=== PATIENT | male | born 1965 | race Caucasian/White ===

== ENCOUNTER → 2018-05-13 07:06 | Day surgery (SDC) | payer BC ==
--- NOTE | 2018-05-13 09:24 | BRIEFOPN ---
Brief Operative Note - Surgery Procedures: Pre-OP Diagnoses: ascities Post-op Diagnosis: same Procedure: paracentesis Surgeon: Shakira Asst: none Anethesia: local EBL: none IVF: none Specimen: none Drains: 1400cc peritoneal fluid removed
--- NOTE | 2018-05-14 02:05 | OP ---
CC: [facility]; Dr. Micah Andrew * DATE OF OPERATION: 05/13/18 - [facility] DATE OF : 67 SURGEON: Miguel Ángel Rosenberg MD DAIRY FARM MANAGER: None. ANESTHESIA: Local anesthesia. PRE-OP DIAGNOSIS: Ascites. POST-OP DIAGNOSIS: Ascites. OPERATIVE PROCEDURE: Paracentesis. FLUIDS REMOVED: 1400 cc of straw-colored fluid removed only. DISPOSITION: The patient tolerated the procedure well, was discharged home. INDICATIONS: Mr. Oakes is a 53-year-old gentleman who was described to me yesterday by [facility] as suffering with new diagnosis of liver disease with ascites, who underwent admission at [facility] where he underwent paracentesis. There was concern for infection and bacterial peritonitis. The patient has had worsening ascites and these have been managed both by his primary care doctor and seen by Gastro[facility], who placed him on diuretics. I was requested to do a paracentesis for symptom control. The patient's symptoms are difficult time sleeping and shortness of breath at times. He is concerned about eating too much food as he feels it may make him more bloated. He is passing flatus and having bowel movements. He denies any abdominal pain. On focused examination, his abdomen is distended, atympanic, nontender. He is jaundiced. Impression was ascites. Plan was paracentesis. I outlined the details of the procedure going over the risks, benefits, and alternatives. The patient agreed to proceed after understanding the complications of bleeding, infection, bacterial peritonitis, need for additional procedures. The patient signed consent. DESCRIPTION OF PROCEDURE: Ultrasound was used to locate pocket of fluid in the right lower quadrant. This was then marked. The area was then cleaned and prepped and draped in a standard surgical fashion. A time-out was performed. Injection of lidocaine along the proposed incision site was carried out. This incision was made and peritoneal cavity was entered with the 8 Malian tubing catheter. It was advanced appropriately and connected to the suction devices. Only just a liter and a half was removed. This was straw-colored, non-cloudy, non- bloody. We manipulated the tube gently and sterilely as we could to try to get more fluid out additionally moving, having the patient move, but this is the only volume we can obtain. The catheter was removed and dressing applied. The patient tolerated the procedure well. Postoperative exam showed softer, less distended, remained nontender. My concern is that may be septations preventing drainage of what appears to be more fluid. There was no imaging available through our institution. For this reason, I did not want to do any additional workup. The patient could be seen by GI where he can undergo additional imaging as need be and the patient is discharged. [id number] #: [id number] MTDD
== END | disposition home or self-care (01) ==
LOC: OR 07:06
PROVIDERS: ATTEND Surgery
DX: K76.9 Liver disease, unspecified (principal); R06.02 Shortness of breath; R18.8 Other ascites
CPT/HCPCS: 49082

== ENCOUNTER 2018-05-19 09:20 | Inpatient (IN) | payer BC ==
--- OUTSIDE RECORDS SUMMARY | 2018-05-19 09:28 | XMS REPORT | Continuity of Care Document ---
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 Micah Andrew MD Primary Care Physician Unavailable Payers Type Date Identification Numbers Payment Provider Subscriber Policy Number: [id number] [facility] KARLA Micah Oakes PayID: [id number] [address] [address] [place] [address] Advance Directives Description No Information Available Problems Description No Information Family History Description No Information Available Social History Type Date Description Comments Sex Unknown ETOH Use Consumes 1 beer per day states one per day now-was 12-14 per day and he smelled like alcohol at his visit Tobacco Use Start: Unknown Patient is a current smoker, smokes every day Smoking Status Reviewed: 05/05/18 Patient is a current smoker, smokes every day Allergies, Adverse Reactions, Alerts Description No Known Drug Allergies Medications Medication Date Status Form Strength Qnty SIG Indications Ordering Provider Spironolactone 05/13/ Active Tablets 100mg 30tabs Take 1 Anabelle 2017 tablet Foor-Pessi daily. MD billy Furosemide 05/13/ Active Tablets 40mg 30tabs Take 1 Anabelle 2018 tablet Foor-Pessi daily. MD billy Ciprofloxacin / Active Tablets 500mg Unknown HCL 0000 Lactulose / Active Solution 10GM/15ML Unknown 0000 Pantoprazole / Active Tablets DR 40mg Unknown Sodium 0000 Trazodone HCL / Hx Tablets 50mg Niziol,Wilfrid Linda rodriguez MD 2015 Sulfamethoxazole / Hx Tablets 800-160mg Niziol,Wilfrid /Trimethoprim DS Linda rodriguez MD 2017 Omeprazole / Hx Capsules 40mg Niziol,Wilfrid 0000 - DR michael MD 2017 Furosemide / Hx Tablets 20mg Unknown 0000 - 2017 Spironolactone / Hx Tablets 25mg Unknown - 2017 Immunizations Description No Information Available Vital Signs Date Vital Result Comment 05/05/2018 2:20pm Height 71 inches 5'11" Weight 195.00 lb BP Systolic 126 mmHg BP Diastolic 84 mmHg Heart Rate 104 /min BMI (Body Mass Index) 27.2 kg/m2 02/01/2016 12:53pm Height 71 inches 5'11" Weight 171.00 lb BP Systolic 132 mmHg BP Diastolic 88 mmHg Heart Rate 88 /min BMI (Body Mass Index) 23.8 kg/m2 Results Description No Information Available Procedures Description No Information Available Encounters Type Date Location Provider Dx Diagnosis Office Visit 02/01/2016 [facility] [place], R63.4 Abnormal weight 1:45p [facility] INTERPERSONAL COMMUNICATIONS PROFESSOR-C loss R19.5 Other fecal abnormalities R14.0 Abdominal distension (gaseous) Plan of Treatment Future Appointment(s):05/19/2018 8:30 am - Laboratory at [facility]05/05/2018 - Anabelle Urban MDK70.31 Alcoholic cirrhosis of liver with ozynimlM08.9 Anemia, otobfrhongoB57.2 Gastrointestinal hemorrhage, unspecified
--- NOTE | 2018-05-19 09:48 | ED ---
Abdominal Pain/Male - HPI Summary HPI Summary: Pt is a 53 y/o male who presents to the ED c/o abdominal pressure. He has a hx of liver cirrhosis and began to have abdominal distention 3-4 weeks ago after being admitted at [facility] 1 month ago. Pt was here 2 days ago with the same symptoms, was diagnosed with dehydration, and had 6.5 L of ascites fluid taken off by Dr. Rosenberg in the ED. This morning the pt went to his GI physician's office, Dr. Urban, to get blood work done, and was advised to go to the ED for further evaluation due to ascites re-accumulation. As per , her has been fatigued, weak, and unable to eat, and has been having episodes of hiccups. Pt has been on diuretics as per Dr. Urban for the past 2 weeks. Pt states he has diffuse abdominal pressure, but denies any sharp pain or radiating pain. No N,V, hemetemesis or melena. The discomfort is alleviated by lying flat, and is rated a 3/10 in severity. He also c/o SOB, but denies any fever, cough, chills, sweats, or CP. Pt is a former smoker and alcoholic. Pts weight was 190 lbs 2 days ago, and was 179 lbs yesterday. Culture from the paracentesis was neg after two days growth. Vitals while in room: HR 86 bpm, BP 119/66. - History of Current Complaint Chief Complaint: EDAbdPain Stated Complaint: ABD SWELLING/WEAKNESS/PAIN Time Seen by Provider: 05/19/18 09:28 Hx Obtained From: Patient, Family/Immunochemist - , Medical Records - ED visit 05/17/18 Onset/Duration: Gradual Onset, Lasting Weeks - 3-4, Worse Since Timing: Constant Severity Initially: Moderate Severity Currently: Moderate Pain Intensity: 3 Pain Scale Used: 0-10 Numeric Location: Diffuse Radiates: No Character: Other: - Pressure Aggravating Factor(s): Other: - Lying flat Alleviating Factor(s): Nothing Associated Signs And Symptoms: Positive: Decreased Appetite. Negative: Fever, Chest Pain, Nausea, Vomiting, Diarrhea Similar Episode/Dx As:: 2 days ago - Allergies/Home Medications Allergies/Adverse Reactions: Allergies Allergy/AdvReac Type Severity Reaction Status Date / Time No Known Allergies Allergy Verified 05/19/18 09:24 Home Medications: Home Medications Furosemide TAB* [Lasix TAB*] 40 mg PO DAILY 05/19/18 [History Confirmed 05/19/18 ] Pantoprazole Sodium 40 mg PO DAILY 05/19/18 [History Confirmed 05/19/18] Spironolactone 100 mg PO DAILY 05/19/18 [History Confirmed 05/19/18] PMH/Surg Hx/FS Hx/Imm Hx Previously Healthy: No Endocrine/Hematology History: Denies: Hx Diabetes GI History: Reports: Other GI Disorders - Liver cirrhosis, s/p paracentesis with 6.5 L removed History: Reports: Other Problems/Disorders - Born with one kidney - Cancer History Cancer Type, Location and Year: None reported - Surgical History Surgery Procedure, Year, and Place: Exicison of foreign body from R hand -2005 Infectious Disease History: No Infectious Disease History: Denies: Traveled Outside the [place] in Last 30 Days - Family History Known Family History: Negative: Cardiac Disease, Hypertension, Diabetes - Social History Occupation: Disabled Lives: With Family Alcohol Use: None Alcohol Amount: former alcoholic Hx Substance Use: No Substance Use Type: Reports: None Hx Tobacco Use: Yes Smoking Status (MU): Former Smoker Review of Systems Positive: Fatigue, Other - Generalized weakness. Negative: Fever, Chills, Skin Diaphoresis Negative: Chest Pain Positive: Shortness Of Breath. Negative: Cough Positive: Other - abdominal pressure, hiccups, decreased appetite. Negative: Abdominal Pain, Vomiting, Nausea Positive: no symptoms reported Skin: Negative Neurological: Negative Psychological: Normal All Other Systems Reviewed And Are Negative: Yes Physical Exam - Summary Physical Exam Summary: Appearance: Ill-appearing, moderate pain distress, well-nourished Skin: Warm, dry, jaundiced Head: Normal Head/Face inspection, atraumatic Eyes: Conjunctiva icteric ENT: Normal inspection Neck: Supple, no nodes, no JVD Respiratory: scattered expiratory wheezes, normal breath sounds, no respiratory distress Cardio: RRR, No murmur, pulses normal, brisk capillary refill Abdomen: Distended, soft, not tympanitic, nontender, liver non-palpable Bowel sounds: Present Musculoskeletal: ROM intact, no calf tenderness, no edema, generalized weakness Psychological: Normal Neuro: Alert, muscle tone normal, no focal deficit Triage Information Reviewed: Yes Vital Signs On Initial Exam: Initial Vitals Temp Pulse Resp BP Pulse Ox 98.1 F 90 16 106/68 99 05/19/18 09:21 05/19/18 09:21 05/19/18 09:21 05/19/18 09:21 05/19/18 09:21 Vital Signs Reviewed: Yes Diagnostics - Vital Signs Vital Signs Temp Pulse Resp BP Pulse Ox 05/19/18 09:21 98.1 F 90 16 106/68 99 - Laboratory Result Diagrams: 05/19/18 10:35 05/19/18 10:35 Lab Statement: Any lab studies that have been ordered have been reviewed, and results considered in the medical decision making process. - Radiology CXR Radiology Interpretation Completed By: Radiologist Summary of Radiographic Findings: Mild mid to lower lung zone atelectasis similar to the prior exam. ED physician reviewed radiology report. - EKG 10:30 Cardiac Rate: NL - 86 bpm EKG Rhythm: Sinus Rhythm ST Segment: Normal Ectopy: None EKG Comparison: Other - No prior to compare. Summary of EKG Findings: An EKG at 10:30 reveals nml AV/IV CT, nml QTc, and nml axis. Re-Evaluation - Re-Evaluation First Eval Re-Evaluation Time: 10:15 Change: Unchanged Comment: Discussed admission with patient, and he agrees. He denies any abdominal pain or N/V. Abdominal Pain Fem Course/Dx - Course Course Of Treatment: Pt is a 53 y/o male who presents to the ED c/o abdominal pressure. He has a hx of liver cirrhosis and began to have abdominal distention 3-4 weeks ago after being admitted at [facility] 1 month ago. Pt was here 2 days ago with the same symptoms, was diagnosed with dehydration, and had 6.5 L of fluid taken off by Dr. Rosenberg. This morning the pt went to his GI physician, Dr. Urban, to get blood work done. As per , her has been fatigued , weak, and unable to eat, and has been having episodes of hiccups. Pt states he has diffuse abdominal pressure, but denies any sharp pain or radiating. The discomfort is alleviated by lying flat, and is rated a 3/10 in severity. He also c/o SOB, but denies any fever, cough, chills, sweats, or CP. A physical exam revealed the pt ill-appearing, jaundiced, icteric conjunctiva, scattered expiratory wheezes, distended abdomen, and liver non-palpable. A CXR revealed mild mid to lower lung zone atelectasis similar to the prior exam. An EKG was normal and revealed a rate of 86 bpm. Pt has multiple lab abnormalities and critical values. Discussed the case with Dr. Mcgee who wants the pt admitted and will consult with the pt. Discussed admission with the pt, who is agreeable with this plan. Dr. Garcia accepts pt for admission. Final dx are cirrhosis, ascites, and end stage liver disease. - Diagnoses Differential Diagnosis/HQI/PQRI: Bowel Obstruction, Hepatitis, Other - cirrhosis Provider Diagnoses: Cirrhosis, Ascites, End stage liver disease, Hyponatremia, Jaundice - Provider Notifications Discussed Care Of Patient With: Yaakov Mcgee Time Discussed With Above Provider: 09:46 Instructed by Provider To: Other - Dr. Mcgee will consult the patient, and would like him to be admitted. At 10:[address] Garcia, who accepts pt for admission. Discharge - Sign-Out/Discharge Documenting (check all that apply): Patient Departure - Admit - Discharge Plan Condition: Stable Disposition: ADMITTED TO [facility] - Billing Disposition and Condition Condition: STABLE Disposition: Admitted to [facility] - Attestation Statements Document Initiated by Phil: Yes Documenting Scribe: Gloria Trinh Provider For Whom Barbieibe is Documenting (Include Credential): Marilee Howard MD Scribe Attestation: Gloria Lane scribed for Marilee Howard MD on 05/19/18 at 1252. Scribe Documentation Reviewed: Yes Provider Attestation: The documentation as recorded by the Gloria monroy accurately reflects the service I personally performed and the decisions made by me, Marilee Howard MD
[2018-05-19 10:51] LABS: Hematocrit 38 % (42-52); Hemoglobin 12.9 g/dl (14.0-18.0); Mean Corpuscular HGB Conc 34 g/dl (31-36); Mean Corpuscular Hemoglobin 35 pg (27-31); Mean Corpuscular Volume 103 fL (80-94); Mean Platelet Volume 9.1 fL (7.4-10.4); Platelet Count 157 10^3/ul (150-450); Red Blood Count 3.73 10^6/ul (4.00-5.40); Red Cell Distribution Width 21 % (10.5-15); White Blood Count 23.1 10^3/ul (3.5-10.8)
[2018-05-19 11:05] LABS: INR 2.22 (0.77-1.02)
[2018-05-19 11:31] LABS: EGFR Non-African American 19.3 (>60)
[2018-05-19 11:49] LABS: ABS Basophils 0.1 10^3/ul (0-0.2); ABS Eosinophils 0.1 10^3/ul (0-0.6); ABS Lymphocytes 1.4 10^3/ul (1.0-4.8); ABS Monocytes 3.4 10^3/ul (0-0.8); ABS Neutrophils 18.1 10^3/ul (1.5-7.7); ABS Nucleated RBC 0 10^3/ul; Eosinophil % 0.4 % (0-6); Lymphocyte % 6.2 % (25-47); Nucleated Red Blood Cells % 0
[2018-05-19] MEDS ORDERED: Ondansetron INJ* 2 MG/ML VIAL IV PRN (11:54)
[2018-05-19] MEDS ORDERED: Phytonadione IV (Adult)* 10 MG/ML 1 ML AMP IV ONE (12:01)
[2018-05-19] MEDS ORDERED: CMC:Midodrine (NF) 5 MG TAB PO SCH (12:04)
[2018-05-19] MEDS ORDERED: cefTRIAXone(*) 2 GM in NS 0.9% 50 ML* 50 ML IVPB SCH (12:30)
[2018-05-19] MEDS ORDERED: cefTRIAXone(*) 1 GM in NS 0.9% 50 ML* 50 ML IVPB SCH (12:30)
[2018-05-19 13:52] LABS: Urine Appearance Cloudy; Urine Blood Negative (Negative); Urine Color Amber; Urine Ketones Negative (Negative); Urine Protein Negative (Negative); Urine Specific Gravity 1.014 (1.010-1.030); Urine Urobilinogen Positive (Negative)
[2018-05-19] MEDS: CMC:Midodrine (NF) 5 MG TAB PO SCH ×3 (14:08→21:13)
[2018-05-19] MEDS ORDERED: NS 0.9% 1000 ML* 1,000 ML IV SCH (14:15)
[2018-05-19] MEDS: Lactulose* 15 ML UDC PO SCH ×2 (14:16→21:13)
[2018-05-19] MEDS ORDERED: Albumin Human 25%* 25 GM/100 ML BTL IV ONE (15:00)
[2018-05-19] MEDS: cefTRIAXone(*) 2 GM in NS 0.9% 100 ML* 100 ML IVPB SCH (15:07)
[2018-05-19] MEDS: NS 0.9% 1000 ML* 1,000 ML IV SCH (15:14)
--- NOTE | 2018-05-19 15:56 | HP ---
CC: Dr. Andrew; Dr. Turner; Dr. Cabrera; Dr. Toney; Dr. Mcgee; Dr. Arminda Kim * HISTORY AND PHYSICAL: DATE OF ADMISSION: 05/19/18 PRIMARY CARE PROVIDER: Dr. Andrew. CONSULTING LOCOMOTIVE PIPE FITTER: Dr. Turner. CONSULTING INFECTIOUS DISEASE SPECIALIST: Dr. Cabrera. CONSULTING SURGEON: Dr. Toney. CONSULTING TOUR SALES REPRESENTATIVE: Dr. Mcgee. MY ATTENDING PHYSICIAN WHILE IN THE HOSPITAL: Dr. Garcia * (report dictated by Alberto Camarillo NP). CHIEF COMPLAINT: Abdominal swelling. HISTORY OF PRESENT ILLNESS: Mr. Oakes is a 53-year-old male patient that he noticed in the beginning of March he was feeling weak, fatigued, tired. He presented to [facility], was found there to have a GI bleed. He was transferred to [facility], where he underwent endoscopies and essentially was discharged. He at that point was diagnosed with he says cirrhosis. He receives most of his care in the [place] area. He sought care with Dr. Arminda Kim on 05/05/18 for follow up for his cirrhosis. The last couple of days though he has been in the ER on 05/17/18 for a large volume paracentesis, he was asked to say, but he left on the 05/17/18, he comes back today on 05/19/18 because he has had progressive worsening swelling of his abdomen. He denies having any chest pain or any shortness of breath. He does admit to feeling congested. He denies having any bleeding. He denies having any abdominal pain. He denied any nausea or vomiting recently. He says that he has been trying to drink, but he just has no appetite. He has been feeling weak. He has been feeling again more tried. He has been just again not feeling well. He denied any chest pain. He said on Saturday, 6.5 liters were taken off. He denied having any fevers or chills. He was concerned though today and his because of swelling in his legs just was not getting any better despite the fact that he has been taking Lasix. He continued taking the Lasix and was paced on a lower dose over the weekend. His dose was recently doubled prior to this. The patient says again he has just been feeling weak and fatigued. He came into the ED today. He was evaluated. It was noted that he had an elevated white count, elevated CRP and his creatinine was much worse, and because of these findings, we were asked to evaluate for admission. PAST MEDICAL HISTORY: Significant for: 1. GI bleed. 2. Cirrhosis. 3. Congenitally, he has 1 kidney. PAST SURGICAL HISTORY: Denied. MEDICATIONS: Home meds include: 1. Aldactone 100 mg daily. 2. Protonix 40 mg daily. 3. Lasix 40 mg daily. ALLERGIES TO MEDICATIONS: Include no known drug allergies. FAMILY HISTORY: Mother had a history of diabetes. Father had a history of kidney cancer. SOCIAL HISTORY: He used to be an alcoholic. He has not had a drink since . He is a former smoker. His surrogate decision maker is his . REVIEW OF SYSTEMS: There is no documented fever. He denies having significant weight change. He denied having any double vision. There was no ear discharge. He denies having any rhinorrhea. There is no sore throat. No thyroid enlargement. He denied having any chest pain. There is no orthopnea. There is no nocturnal dyspnea. He denied having any abdominal pain. He does admit to have abdominal swelling. There was no nausea, vomiting. No dysuria, no frequency. No seizure. No loss of consciousness. No pruritus and no skin ulcerations. Review of 14 systems completed, all others negative. PHYSICAL EXAMINATION GENERAL: At this time, Mr. Oakes is a 53-year-old male patient. He is sitting in the ED stretcher. He is chronically-ill appearing. VITAL SIGNS: Blood pressure 109/64, pulse 87, respirations 18, O2 sat 99%, temperature was 98.1. HEENT: Head: Atraumatic. Eyes again were noted to be icteric. Pupils equal and reactive to light. Throat: Oral mucosa appears to be moist. No oropharyngeal erythema. NECK: Supple. LUNGS: Clear to auscultation bilaterally. There was no wheezes, rales, or rhonchi. HEART: Sounds S1, S2. He had a regular rate and rhythm with no murmurs, rubs, or gallops. ABDOMEN: Soft, but there was ascites. He had abdominal vein distentions on the skin, nontender. Bowel sounds were present. EXTREMITIES: He had 2+ pitting edema bilaterally and 5/5 strength. NEUROLOGICAL: He is awake. He is alert. He is oriented x3. His tongue is midline. His block sealer were equal. He has no gross focal deficits. SKIN: Intact, but he again does appear to be jaundiced. LABORATORY DATA/DIAGNOSTIC STUDIES: His labs today, WBC of 23.1, RBC of 3.73, hemoglobin 12.9, hematocrit 38, platelet count was 157. His INR was 2.22, PTT was 42. His sodium was 125. His potassium was 4.9, chloride of 90, his bicarb was 20, BUN 62, creatinine of 3.37. When he was here 2 days ago, his creatinine was 2.15, his glucose was 111, his lactic acid was 1.7. Calcium 7.5 , magnesium 2.5. Bilirubin 20, AST 90, ALT 20, alk phos 237, and CRP was 119. Troponin 0.01. Albumin was 2.2. Prealbumin is pending. Amylase and lipase were normal. He did have a paracentesis 2 days ago, which showed 26 WBC, 100 total cell count with 25% neutrophils, 1% band. Microbiology on that fluid is negative to date. He had a chest x-ray obtained today as well. Impression: Mild mid to lower lung zone atelectasis similar to the prior exam. EKG, there is no previous for comparison, but the EKG today shows a normal sinus rhythm, normal axis, rate of 86, no ST elevation or T-wave inversions noted. He had a CT of the abdomen and pelvis 2 days ago, which revealed malrotated right kidney, moderate to large amount of ascites is noted, right basilar atelectasis is noted. Old medical records reviewed. ASSESSMENT AND PLAN: Mr. Oakes is a 53-old male patient with a known history of cirrhosis coming into the ED today with complaints of worsening swelling of the abdomen and increasing weakness. Evaluation today, he was noted to be in acute renal failure. In addition, he is having an elevated white count. There was concern for the acute renal failure and possible underlying infection. He will be admitted under inpatient status for: 1. Cirrhosis. Again, at this point, I do have to consult Dr. Mcgee. His MELD score is 39 placing him at a 60% mortality in the next 3 months. I am going to hold his diuretics. I do think he needs a paracentesis today again to evaluate his fluid as there was bands in the fluid 2 days ago. I will put him empirically on Rocephin. He does appear to be decompensated. I will see if I can find any insulting reason for this. I am concerned of infection because of the white count of 23,000. I will panculture him and I also will get Dr. Cabrera involve to help us as well. 2. Acute renal failure. I am concerned for hepatorenal. I do have Dr. Turner evaluating the patient. I am sending off his urine sodium and urine potassium and also urine creatinine. I will bladder scan him as well to make sure he is not retaining. I suspect that he is intravascularly dry and he may need fluids , but I would like to see what his urine sodium is before giving him fluids and albumin. I will start him on midodrine and we will continue to follow this. 3. History of gastrointestinal bleed. I am getting records from [facility] to just see where his labs were a month ago and comparison to today. 4. DVT prophylaxis. I have ordered SCDs. 5. Coagulopathy. This is probably secondary to the cirrhosis. I am going to give him a dose of vitamin K. 6. Code status. He is a full code. 7. Fluids, electrolytes, and nutrition. He is clear liquid diet. TIME SPENT: Time spent on the admission was 70 minutes, greater than half the time spent [id number] with the patient obtaining my history and physical; other half of the time spent going over the plan of care with the patient and implementing plan of care. I did discuss the plan of care with my attending, Dr. Garcia. ALBERTO CAMARILLO, JOHAN [id number]/[facility] #: [id number] MARK
--- NOTE | 2018-05-19 16:24 | CONS ---
CC: Dr. Andrew * CONSULTATION REPORT: DATE OF CONSULT: 05/19/18 REFERRING PHYSICIAN: Dr. Andrew. INDICATION: Cirrhosis, alcohol abuse, recent. NARRATIVE: Mr. Oakes is a 53-year-old alcoholic, who has a diagnosis of alcoholic cirrhosis. He was recently at [facility] where the diagnosis was made. He was seen a couple of years ago and had a liver biopsy for increased liver function test. It did show grade 3, stage 4 liver disease, either DOS SANTOS versus alcoholic cirrhosis. The patient continued to drink alcohol. He states he had been drinking up until 04/22/18. He was admitted to [facility] for anemia and management of his cirrhosis. He has seen Dr. Urban in the office for a continued management. His did call me over this past weekend with increased abdominal girth, I recommended he go to the emergency room where they did remove a 6.5 liters via large volume paracentesis. Acidic analysis did not reveal any spontaneous bacterial peritonitis at that time. The patient then represented to the emergency room today for failure to thrive. He denies any black and tarry stools. Both he and his denied any confusion. He is using lactulose on a daily basis. He states that his abdomen has increased in size back to where it was just a couple of days ago. He feels very short of breath. He is having a difficult time eating because he is so full and distended. He denies any other symptoms at this time. PAST MEDICAL HISTORY: Significant for alcoholism. PAST SURGICAL HISTORY: None. MEDICATIONS: Upon admission include: 1. Cipro. 2. Lasix 40 mg a day. 3. Lactulose. 4. Pantoprazole 40 mg a day. 5. Spironolactone 100 mg a day. FAMILY HISTORY: Mom had diabetes. Father with kidney cancer. No liver disease in the family. No GI malignancies in the family. SOCIAL HISTORY: He does smoke cigars. Alcohol use up until 04/22/18. He lives with his . REVIEW OF SYSTEMS: Please see the HPI, other than that mentioned in the HPI were negative. Other pertinent findings would include fatigue, lethargy, decreased muscle mass. PHYSICAL EXAM: His temperature is 97.7, blood pressure is 108/64, pulse of 76, respiratory rate 16, O2 sat is 99%. General: Chronically ill-appearing male, in no apparent distress. Alert, oriented, pleasant, and fluent. Neuro: No asterixis. HEENT: Sclerae are icteric. Conjunctivae are not pale. Heart: Regular rate and rhythm. Lungs: Clear to auscultation. Abdomen: Distended. Positive bowel sounds. Soft, positive dull flags. Skin: Warm and dry. No rashes. Positive jaundice. DIAGNOSTIC STUDIES/LAB DATA: Of note, white count of 23, hemoglobin of 12.9, platelets of 157. INR is 2.22. Sodium is 123. BUN is 62, creatinine is 3.37, just 2 days ago his creatinine was 2.15. Bilirubin of 20, AST of 90, ALT of 20 , alk phos of 239. CRP is 119. Albumin is 2.2. Unfortunately, he has a MELD score of 39. ASSESSMENT AND PLAN: Mr. Oakes is a 53-year-old alcoholic with alcoholic cirrhosis and complications from it. No encephalopathy at this point. However , I would recommend we continue with his lactulose. 1. Ascites, unfortunately we cannot use diuretics given his renal failure. He did have a 6.5-liter large volume paracentesis just 48 hours ago, there was no evidence of SBP on the tap. He likely will need a repeat paracentesis here in the next few days. 2. Esophageal varices: He did have an upper endoscopy on 04/24/18 at [facility] and no varices were noted. I did see the report, there was positive portal hypertensive gastropathy. 3. Renal failure: The patient had seen Dr. Turner. Unfortunately, he probably does have a component of hepatorenal. Hopefully, there is some prerenal azotemia due to dehydration here and hopefully, his kidney function can improve a little bit. I did have an extremely long and fracisco discussion with the patient and his regarding his current situation with a MELD of 39 , his 3-month mortality is some where between 50% and 70%. Hopefully, with continued abstinence, he can improve. We will continue to follow along very closely. [id number]/[facility] #: [id number] MARK
--- NOTE | 2018-05-19 19:33 | CONS ---
NEPHROLOGY CONSULTATION: ADDENDUM: He was started on lactulose recently. He has been reluctant to take it because of the diarrhea. His thinks he has had some easy bruisability. He denies this, thinks that it is related to a minor trauma and scraping himself. PHYSICAL EXAM: He is a well-developed, well-nourished white gentleman. His blood pressure is 109/64, but he has been hypotensive here in the emergency room , pulse is 89, respiratory rate 16. He has not been able to void here. On HEENT, he is markedly icteric. His extraocular muscles are intact. His mucous membranes are dry. His lips are dry. He has jugular venous distention to about 12 cm, but he is lying flat in bed. His chest is clear. The heart revealed a regular rhythm without murmurs. His abdomen is markedly distended with a positive fluid wave. He has caput medusae that is obvious on the anterior abdominal wall and the lower chest. He has spider angiomata. His liver is ballotable approximately 4 fingerbreadths below the costal margin in the midclavicular line. Bones, Joints, Extremities: Reveal no cyanosis or clubbing, but he does have 2+ bilateral edema approximately one-half way up his lower legs. LABORATORY DATA: Review of his laboratory studies reveals a white count of 23.1 , he was 26.4 on 05/17/18; his hemoglobin is 12.9; hematocrit 38; MCV is 103; platelet count of 157,000. His INR is 2.22. Sodium of 123, potassium 4.9, chloride 90, total CO2 of 20, BUN of 62, creatinine 3.34. His creatinine was 2.15 on 05/17/18. Calcium 7.5. Total bilirubin 20, his AST is 90 with an ALT of 20. His albumin is 2.2. Peritoneal fluid on 05/17/18 revealed 26 wbc's, 68 rbc's, there were 25% neutrophils, 46% lymphocytes, 26% monocytes. IMPRESSION: 1. Acute renal failure. This is highly likely to be secondary to a perceived intravascular volume depletion because of opening up of arteriovenous malformations due to his liver disease. 2. Alcoholic liver disease. I am suspicious that there is an alcoholic hepatitis component to this because of the ratio of his transaminases and the fact that his liver is enlarged and not small on CT scan and the fact that he is able to elevate his BUN. Nevertheless, his MELD score is 39 and he is hyponatremic. These are both significant negative prognostic indicators. PLAN/RECOMMENDATIONS: I would recommend the attempt to close off his arteriovenous malformation channels by the use of midodrine. I would actually start at a higher than usual starting dose, starting at 10 mg 3 times a day. I would withhold octreotide at this time we see an effect of the octreotide. I would start him on an albumin infusion and he should probably be rehydrated cautiously with saline. I would be cautious to obtain his urinary electrolytes before starting the saline so as to not obscure the urinary sodium and potassium. I would avoid the use of loop diuretics, although the Aldactone can probably continue at this point. I have discussed the case at length with Alberto Camarillo NP. [id number]/[facility] #: [id number] MARK
--- NOTE | 2018-05-19 19:51 | CONS ---
ADDENDUM NOW INCLUDED ON THIS REPORT CC: Dr. Andrew * NEPHROLOGY CONSULTATION: DATE OF CONSULT: 05/19/18 HISTORY OF PRESENT ILLNESS: Mr. Oakes is a 53-year-old gentleman with a history of alcoholism. He stopped drinking at [place] of this year. He had been admitted to the hospital at the [facility] approximately a month ago for gastrointestinal bleed. At that time, his bilirubin was 2.1. He had an outpatient consultation with Gastroenterology, who did mention the possibility that he could have had a component of alcoholic hepatitis here. He was in the emergency room on Saturday because of increasing abdominal girth and he had a paracentesis of almost 6.5 L. Since that time, he thinks that half of that fluid has returned. He returned to the emergency room today because of that recurrent ascites. He denies orthopnea and dyspnea on exertion. He does notice nausea and anorexia. His has noted worsening of jaundice over approximately the last 3 weeks. PAST MEDICAL HISTORY: Other than this particular history, he has no significant medical history. PAST SURGICAL HISTORY: Fairly unremarkable except for excision of a foreign body from his right hand. MEDICATIONS: Included: 1. Omeprazole. 2. Bactrim. 3. Trazodone. 4. Now Aldactone 100 mg daily. 5. Furosemide 40 mg daily. SOCIAL HISTORY: He is employed in a local [employer] shop. He is . He has been a smoker in the past, but quit recently as well. REVIEW OF SYSTEMS: He feels markedly dehydrated. No visual disturbances. No hearing problems. He has had some diarrhea. He had been given some Aldactone. NEPHROLOGY CONSULTATION: ADDENDUM: He was started on lactulose recently. He has been reluctant to take it because of the diarrhea. His thinks he has had some easy bruisability. He denies this, thinks that it is related to a minor trauma and scraping himself. PHYSICAL EXAM: He is a well-developed, well-nourished white gentleman. His blood pressure is 109/64, but he has been hypotensive here in the emergency room , pulse is 89, respiratory rate 16. He has not been able to void here. On HEENT, he is markedly icteric. His extraocular muscles are intact. His mucous membranes are dry. His lips are dry. He has jugular venous distention to about 12 cm, but he is lying flat in bed. His chest is clear. The heart revealed a regular rhythm without murmurs. His abdomen is markedly distended with a positive fluid wave. He has caput medusae that is obvious on the anterior abdominal wall and the lower chest. He has spider angiomata. His liver is ballotable approximately 4 fingerbreadths below the costal margin in the midclavicular line. Bones, Joints, Extremities: Reveal no cyanosis or clubbing, but he does have 2+ bilateral edema approximately one-half way up his lower legs. LABORATORY DATA: Review of his laboratory studies reveals a white count of 23.1 , he was 26.4 on 05/17/18; his hemoglobin is 12.9; hematocrit 38; MCV is 103; platelet count of 157,000. His INR is 2.22. Sodium of 123, potassium 4.9, chloride 90, total CO2 of 20, BUN of 62, creatinine 3.34. His creatinine was 2.15 on 05/17/18. Calcium 7.5. Total bilirubin 20, his AST is 90 with an ALT of 20. His albumin is 2.2. Peritoneal fluid on 05/17/18 revealed 26 wbc's, 68 rbc's, there were 25% neutrophils, 46% lymphocytes, 26% monocytes. IMPRESSION: 1. Acute renal failure. This is highly likely to be secondary to a perceived intravascular volume depletion because of opening up of arteriovenous malformations due to his liver disease. 2. Alcoholic liver disease. I am suspicious that there is an alcoholic hepatitis component to this because of the ratio of his transaminases and the fact that his liver is enlarged and not small on CT scan and the fact that he is able to elevate his BUN. Nevertheless, his MELD score is 39 and he is hyponatremic. These are both significant negative prognostic indicators. PLAN/RECOMMENDATIONS: I would recommend the attempt to close off his arteriovenous malformation channels by the use of midodrine. I would actually start at a higher than usual starting dose, starting at 10 mg 3 times a day. I would withhold octreotide at this time we see an effect of the octreotide. I would start him on an albumin infusion and he should probably be rehydrated cautiously with saline. I would be cautious to obtain his urinary electrolytes before starting the saline so as to not obscure the urinary sodium and potassium. I would avoid the use of loop diuretics, although the Aldactone can probably continue at this point. I have discussed the case at length with Alberto Camarillo NP. [id number]/[facility] #: [id number]/[facility] #: [id number] MARK
[2018-05-19 21:36] LABS: INR 2.25 (0.77-1.02)
[2018-05-20] MEDS: NS 0.9% 1000 ML* 1,000 ML IV SCH (03:15)
[2018-05-20 06:04] LABS: ABS Basophils 0.2 10^3/ul (0-0.2); ABS Eosinophils 0.1 10^3/ul (0-0.6); ABS Lymphocytes 1.2 10^3/ul (1.0-4.8); ABS Monocytes 1.3 10^3/ul (0-0.8); ABS Neutrophils 15.4 10^3/ul (1.5-7.7); ABS Nucleated RBC 0 10^3/ul; Eosinophil % 0.8 %; Hematocrit 32 % (42-52); Hemoglobin 10.8 g/dl (14.0-18.0); Lymphocyte % 6.4 %; Mean Corpuscular HGB Conc 34 g/dl (31-36); Mean Corpuscular Hemoglobin 35 pg (27-31); Mean Corpuscular Volume 103 fL (80-94); Nucleated Red Blood Cells % 0; Platelet Count 108 10^3/ul (150-450); Red Blood Count 3.11 10^6/ul (4.00-5.40); Red Cell Distribution Width 20 % (10.5-15); White Blood Count 18.3 10^3/ul (3.5-10.8)
[2018-05-20 06:13] LABS: INR 1.95 (0.77-1.02)
[2018-05-20 06:23] LABS: EGFR Non-African American 19.1 (>60)
[2018-05-20] MEDS: Lactulose* 15 ML UDC PO SCH ×3 (09:02→21:37)
[2018-05-20] MEDS: Omeprazole CAP* 20 MG PO SCH (09:02)
[2018-05-20] MEDS: CMC:Midodrine (NF) 5 MG TAB PO SCH ×3 (09:02→21:37)
[2018-05-20] MEDS ORDERED: NS 0.9% 1000 ML* 1,000 ML IV SCH (10:44)
[2018-05-20] MEDS ORDERED: Phytonadione IV (Adult)* 10 MG/ML 1 ML AMP IV ONE (11:39)
[2018-05-20] MEDS ORDERED: Albumin Human 25%* 50 GM/200 ML BTL IV ONE ×2 (12:00)
[2018-05-20] MEDS ORDERED: ALBUMIN HUMAN 25% IV ONE ×2 (12:00→14:00)
[2018-05-20] MEDS: Spironolactone TAB* 25 MG PO SCH (12:28)
[2018-05-20] MEDS ORDERED: Phytonadione IV (Adult)* 5 MG in NS 0.9% 50 ML* 50 ML IV ONE (13:00)
--- NOTE | 2018-05-20 14:00 | PN ---
Subjective Date of Service: 05/20/18 Interval History: Patient seen and examined, at bedside, denies fever or chills, feels like he gets the hiccups frequently. Denies SOB, no chest pain, no abdominal pain. Objective Active Medications: Ceftriaxone Sodium 2 gm/ (Sodium Chloride) 100 mls @ 200 mls/hr IVPB Q24H [facility] Last Admin: 05/19/18 15:07 Dose: 200 mls/hr Sodium Chloride (Ns 0.9% 1000 Ml*) 1,000 mls @ 50 mls/hr IV PER RATE [facility] Stop: 05/21/18 06:43 Last Admin: 05/20/18 10:00 Dose: 50 mls/hr Albumin Human (Albumin Human 25%*) 50 gm in 200 mls @ 100 mls/hr IV ONCE ONE Stop: 05/20/18 13:59 Last Admin: 05/20/18 12:34 Dose: 100 mls/hr Albumin Human (Albumin Human 25%*) 9 gm in 36 mls @ 12 mls/hr IV ONCE ONE Stop: 05/20/18 16:59 Lactulose (Lactulose*) 15 ml PO TID [facility] Last Admin: 05/20/18 09:02 Dose: 15 ml Midodrine (Midodrine (Nf)) 10 mg PO TID [facility]; Protocol Last Admin: 05/20/18 09:02 Dose: 10 mg Omeprazole (Prilosec Cap*) 20 mg PO DAILY [facility] Last Admin: 05/20/18 09:02 Dose: 20 mg Ondansetron HCl (Zofran Inj*) 4 mg IV Q6H PRN PRN Reason: NAUSEA Spironolactone (Aldactone Tab*) 150 mg PO DAILY [facility] Last Admin: 05/20/18 12:28 Dose: 150 mg Vital Signs - 8 hr 05/20/18 05/20/18 05/20/18 05:58 06:00 06:01 Temperature Pulse Rate 81 85 Respiratory 20 15 13 Rate Blood Pressure 93/62 (mmHg) O2 Sat by Pulse 95 95 Oximetry 05/20/18 05/20/18 05/20/18 07:00 07:01 08:00 Temperature 97.9 F Pulse Rate 81 79 81 Respiratory 16 22 13 Rate Blood Pressure 97/62 102/61 (mmHg) O2 Sat by Pulse 96 96 95 Oximetry 05/20/18 05/20/18 05/20/18 08:01 09:00 09:01 Temperature Pulse Rate 78 91 88 Respiratory 13 13 20 Rate Blood Pressure 99/59 (mmHg) O2 Sat by Pulse 95 96 95 Oximetry 05/20/18 05/20/18 05/20/18 10:00 10:01 11:00 Temperature Pulse Rate 82 83 82 Respiratory 15 13 13 Rate Blood Pressure 99/62 101/66 (mmHg) O2 Sat by Pulse 96 95 96 Oximetry 05/20/18 05/20/18 05/20/18 11:01 12:00 12:01 Temperature 98 F Pulse Rate 80 84 83 Respiratory 12 28 17 Rate Blood Pressure 102/69 (mmHg) O2 Sat by Pulse 96 96 96 Oximetry 05/20/18 05/20/18 13:00 13:01 Temperature Pulse Rate 81 75 Respiratory 21 15 Rate Blood Pressure 103/61 (mmHg) O2 Sat by Pulse 97 96 Oximetry Oxygen Devices in Use Now: None Appearance: alert, jaundiced, NAD Eyes: PERRLA, - - icteric sclera Ears/Nose/Mouth/Throat: Clear Oropharnyx, Mucous Membranes Moist Neck: NL Appearance and Movements; NL JVP, Trachea Midline Respiratory: Symmetrical Chest Expansion and Respiratory Effort, Clear to Auscultation Cardiovascular: NL Sounds; No Murmurs; No JVD, RRR, No Edema Abdominal: - - distended, tympanic, non-tender Extremities: No Edema, No Clubbing, Cyanosis Skin: No Rash or Ulcers Neurological: Alert and Oriented x 3, NL Sensation Nutrition: Taking PO's Result Diagrams: 05/20/18 05:50 05/20/18 05:50 Microbiology and Other Data: Microbiology 05/19/18 11:08 Aerobic Blood Culture - Preliminary Blood Venous No Growth Day 1 Anaerobic Blood Culture - Preliminary No Growth Day 1 05/19/18 10:35 Aerobic Blood Culture - Preliminary Blood Venous No Growth Day 1 Anaerobic Blood Culture - Preliminary No Growth Day 1 05/20/18 07:40 Stool Occult Blood (KEVEN) - Final Stool 05/19/18 12:03 Influenza Types A,B Antigen - Final Nasopharyngeal Specimen received for Influenza A/B Molecular testing 05/19/18 16:30 Gram Stain - Final Body Fluid - Peritoneal 05/19/18 14:38 Nasal Screen MRSA (PCR) - Final Nasal Mrsa Not Detected Assess/Plan/Problems-Billing Assessment: This is a 53 year old male with history of ETOH cirrhosis that presented to the ER with abdominal pain and distention 2/2 ascites, currently in decompensated liver failure. - Patient Problems (1) Alcoholic cirrhosis of liver with ascites Code(s): K70.31 - ALCOHOLIC CIRRHOSIS OF LIVER WITH ASCITES SNOMED Code(s): 891432453 Comment: - Follows with Dr. Urban outpatient - Consult with Dr. Mcgee and Dr. Turner appreciated - Midodrine started, will place back on spironolactone, continue albumin with 50gm now and continuous 3 hour infusion thereafter - Will hold lasix given increasing creatinine - Monitor bilirubin, still at 18 but down from 20 at admission - MELD score still between 38-39 with nearly 60% mortality rate in 90 days (2) Acute renal failure Comment: - Concern for HRS in the setting of cirrhosis, patient also with congenital single kidney - Continue midodrine TID - Pending serum and urine osmolality, will recheck urine sodium and potassium on Saturday per nephrology recommendations (3) Hyponatremia Code(s): E87.1 - HYPO-OSMOLALITY AND HYPONATREMIA SNOMED Code(s): 54307083 Comment: - Continue low sodium diet, NS started at 50ml/hr, follow urine and serum lytes (4) Leukocytosis Code(s): D72.829 - ELEVATED WHITE BLOOD CELL COUNT, UNSPECIFIED SNOMED Code(s) : 833184637 Comment: - Ba-cultured, cultures negative to date - Slight improvement today, afebrile - Continue ceftriaxone empirically, as patient is currently decompensated (5) GI bleeding Code(s): K92.2 - GASTROINTESTINAL HEMORRHAGE, UNSPECIFIED SNOMED Code(s): 48656533 Comment: - Recent GI bleed, continues with heme-positive stool today - No hematemesis, no melena - Unclear if he has varices, records from previous admission pending - Continue PPI - Appreciate further recs from GI (6) Alcohol abuse Code(s): F10.10 - ALCOHOL ABUSE, UNCOMPLICATED SNOMED Code(s): 30062077 Comment: - Last drink 04/22/2018 per record - Would not be a transplant candidate 2/2 active ETOH use (7) Hyperbilirubinemia Code(s): E80.6 - OTHER DISORDERS OF BILIRUBIN METABOLISM SNOMED Code(s): 62978405 Comment: - Bili 18.3 today from 20 at admission 2/2 liver failure - Physically jaundiced, continue to monitor closely (8) DVT prophylaxis Code(s): DBT2619 - SNOMED Code(s): 481927719 Comment: - High risk for bleeding, SCDs only (9) Full code status Code(s): Z78.9 - OTHER SPECIFIED HEALTH STATUS SNOMED Code(s): 709261635 Status and Disposition: Inpatient: Critical, prognosis is poor. Appreciate recommendations from all disciplines.
[2018-05-20] MEDS: cefTRIAXone(*) 2 GM in NS 0.9% 100 ML* 100 ML IVPB SCH (14:04)
--- NOTE | 2018-05-20 19:26 | OP ---
DATE OF OPERATION: 05/19/18 - ROOM #ICU-09 DATE OF : 67 SURGEON: Tony Toney MD. CAP INSPECTOR: None. ANESTHESIA: 1% lidocaine with epinephrine. PRE-OP DIAGNOSIS: Ascites with hepatic failure. POST-OP DIAGNOSIS: Ascites with hepatic failure. OPERATIVE PROCEDURE: Paracentesis. SPECIMENS: Peritoneal ascitic fluid sent for cell count and differential. WOUND CLASSIFICATION: I. DRAINS: None. COMPLICATIONS: None. FINDINGS: Approximately 3.5 L of bilious clear fluid was drained. Specimens were sent individually for above analysis. BRIEF HISTORY: Mr. Micah Oakes is a 53-year-old gentleman who presented with alcoholic liver disease, admitted with hyperbilirubinemia and massive ascites. He has had 2 paracentesis in the last week and a request was made from the primary service for drainage as well as collection for specimens to rule out spontaneous bacterial peritonitis. The procedure was discussed with the patient and his and the risks are but not limited to bleeding, infection, injury to peritoneal and retroperitoneal structures, i.e., bowel with subsequent peritonitis and sepsis, discomfort, and anesthetic risks. DESCRIPTION OF PROCEDURE: Written informed consent was obtained and the patient was placed in the slightly sitting upright supine position. A bedside ultrasound was then used along the right mid to lower abdominal quadrants laterally and there appeared to be an adequate amount of fluid in this area. The area was prepped and draped in the usual sterile fashion. A time-out verification was completed. A 1% lidocaine with epinephrine was used to infiltrate the skin and subcutaneous tissue and I did use this to aspirate some clear yellow fluid. Next, a small robert was made with 11-blade knife in the skin and the 8-Icelandic catheter over the needle was passed into the abdominal cavity with aspirating the syringe until there was withdraw of clear bilious yellow fluid and the catheter was inserted without difficulty. The catheter was then attached to the suction vacuum device, tubes, bottles and about 3.5 L of material were aspirated and drained and additional specimens were sent in the smaller specimen vials. At about this point, there was not much further drainage and the catheter was removed. Firm pressure was held and a sterile dressing was applied. The patient tolerated the procedure well. [id number]/[facility] #: [id number] [facility]
[2018-05-21 05:46] LABS: ABS Basophils 0.1 10^3/ul (0-0.2); ABS Eosinophils 0.2 10^3/ul (0-0.6); ABS Monocytes 1.3 10^3/ul (0-0.8); ABS Nucleated RBC 0 10^3/ul; Eosinophil % 1.1 %; Hematocrit 33 % (42-52); Hemoglobin 11.1 g/dl (14.0-18.0); Lymphocyte % 6.1 %; Mean Corpuscular HGB Conc 34 g/dl (31-36); Mean Corpuscular Hemoglobin 35 pg (27-31); Mean Corpuscular Volume 104 fL (80-94); Nucleated Red Blood Cells % 0; Platelet Count 95 10^3/ul (150-450); Red Blood Count 3.17 10^6/ul (4.00-5.40); Red Cell Distribution Width 20 % (10.5-15); White Blood Count 16.6 10^3/ul (3.5-10.8)
[2018-05-21 05:58] LABS: EGFR Non-African American 20.3 (>60)
[2018-05-21] MEDS: CMC:Midodrine (NF) 5 MG TAB PO SCH ×3 (08:01→20:37)
[2018-05-21] MEDS: Spironolactone TAB* 25 MG PO SCH (08:02)
[2018-05-21] MEDS: Lactulose* 15 ML UDC PO SCH ×3 (08:03→20:37)
[2018-05-21] MEDS: Omeprazole CAP* 20 MG PO SCH (08:03)
[2018-05-21] MEDS ORDERED: Albumin Human 25%* 50 GM/200 ML BTL IV ONE (10:00)
[2018-05-21] MEDS: Octreotide Acetate* 500 MCG in NS 0.9% 100 ML* 100 ML IVPB SCH ×2 (11:41→21:05)
[2018-05-21] MEDS ORDERED: ALBUMIN HUMAN 25% IV ONE (12:00)
[2018-05-21] MEDS: cefTRIAXone(*) 2 GM in NS 0.9% 100 ML* 100 ML IVPB SCH (12:52)
--- NOTE | 2018-05-21 15:08 | PN ---
Subjective Date of Service: 05/21/18 Interval History: Patient seen and examined. Did not recognize me today, states "how was your day off", patient reoriented. Appears somewhat lethargic. Denies SOB, no chest pain , abdomen uncomfortable but not painful. Objective Active Medications: Ceftriaxone Sodium 2 gm/ (Sodium Chloride) 100 mls @ 200 mls/hr IVPB Q24H FOR[facility], [facility]1983 Last Admin: 05/21/18 12:52 Dose: 200 mls/hr Octreotide Acetate 500 mcg/ (Sodium Chloride) 101 mls @ 10.1 mls/hr IVPB Q10H FOR[facility], [facility]1983 Last Admin: 05/21/18 11:41 Dose: 10.1 mls/hr Albumin Human (Albumin Human 25%*) 50 gm in 200 mls @ 100 mls/hr IV BID [facility], [facility] Lactulose (Lactulose*) 15 ml PO TID [facility], [facility] Last Admin: 05/21/18 08:03 Dose: 15 ml Midodrine (Midodrine (Nf)) 10 mg PO TID [facility], [facility]; Protocol Last Admin: 05/21/18 08:01 Dose: 10 mg Omeprazole (Prilosec Cap*) 20 mg PO DAILY [facility], [facility] Last Admin: 05/21/18 08:03 Dose: 20 mg Ondansetron HCl (Zofran Inj*) 4 mg IV Q6H PRN PRN Reason: NAUSEA Spironolactone (Aldactone Tab*) 150 mg PO DAILY [facility], [facility] Last Admin: 05/21/18 08:02 Dose: 150 mg Vital Signs - 8 hr 05/21/18 05/21/18 05/21/18 08:00 08:01 08:17 Temperature 98.5 F Pulse Rate 88 Respiratory 23 20 Rate Blood Pressure 115/69 (mmHg) O2 Sat by Pulse 97 Oximetry 05/21/18 05/21/18 05/21/18 09:00 09:01 10:00 Temperature Pulse Rate 77 80 76 Respiratory 18 15 17 Rate Blood Pressure 108/67 105/69 (mmHg) O2 Sat by Pulse 99 99 96 Oximetry 05/21/18 05/21/18 05/21/18 10:01 11:00 11:01 Temperature Pulse Rate 82 73 73 Respiratory 16 13 14 Rate Blood Pressure 89/48 (mmHg) O2 Sat by Pulse 96 97 97 Oximetry 05/21/18 05/21/18 05/21/18 11:22 11:32 11:45 Temperature Pulse Rate 84 81 66 Respiratory 17 18 14 Rate Blood Pressure 89/54 103/52 96/44 (mmHg) O2 Sat by Pulse 98 97 95 Oximetry 05/21/18 05/21/18 12:00 12:01 Temperature Pulse Rate 66 65 Respiratory 12 15 Rate Blood Pressure 81/50 (mmHg) O2 Sat by Pulse 77 77 Oximetry Oxygen Devices in Use Now: None Appearance: Icteric, frail, NAD Eyes: PERRLA - icteric sclera Ears/Nose/Mouth/Throat: Clear Oropharnyx, Mucous Membranes Moist Neck: NL Appearance and Movements; NL JVP, Trachea Midline Respiratory: Symmetrical Chest Expansion and Respiratory Effort, Clear to Auscultation Cardiovascular: NL Sounds; No Murmurs; No JVD, RRR, No Edema Abdominal: - - soft, further distended than yesterday, circumference appears more enlarged Extremities: No Edema, No Clubbing, Cyanosis Skin: No Rash or Ulcers, - - jaundiced Neurological: - - alert, forgetful Nutrition: Taking PO's Result Diagrams: 05/21/18 05:15 05/21/18 05:15 Microbiology and Other Data: Microbiology 05/19/18 11:08 Aerobic Blood Culture - Preliminary Blood Venous No Growth Day 1 Anaerobic Blood Culture - Preliminary No Growth Day 1 05/19/18 10:35 Aerobic Blood Culture - Preliminary Blood Venous No Growth Day 1 Anaerobic Blood Culture - Preliminary No Growth Day 1 05/20/18 07:40 Stool Occult Blood (KEVEN) - Final Stool 05/19/18 12:03 Influenza Types A,B Antigen - Final Nasopharyngeal Specimen received for Influenza A/B Molecular testing 05/19/18 16:30 Gram Stain - Final Body Fluid - Peritoneal 05/19/18 14:38 Nasal Screen MRSA (PCR) - Final Nasal Mrsa Not Detected Assess/Plan/Problems-Billing Assessment: This is a 53 year old male with history of ETOH cirrhosis that presented to the ER with abdominal pain and distention 2/2 ascites, currently in decompensated liver failure. - Patient Problems (1) Alcoholic cirrhosis of liver with ascites Code(s): K70.31 - ALCOHOLIC CIRRHOSIS OF LIVER WITH ASCITES SNOMED Code(s): 110618368 Comment: - Follows with Dr. Urban outpatient - Consults with Dr. Mcgee and Dr. Turner appreciated - Continue midodrine and spironolactone - Start octreotide drip at 50mcg/hr - Will defer to nephrology if lasix is an option - Discussed Albumin with Dr. Urban, will continue 50gm BID - Monitor bilirubin, up to 19 again today - MELD score still 39 with nearly 60% mortality rate in 90 days (2) Encephalopathy acute Code(s): G93.40 - ENCEPHALOPATHY, UNSPECIFIED SNOMED Code(s): 75493826 Comment: - Ammonia 88 yesterday, beginning to trend down - Continue lactulose at curren dosing - Monitor mental status closely (3) Acute renal failure Comment: - Concern for HRS in the setting of cirrhosis, patient also with congenital single kidney - Continue midodrine TID - Poor urine output today per RN, approx 20ml/hr, dark and concentrated - Dr. Turner to evaluate today (4) Hyponatremia Code(s): E87.1 - HYPO-OSMOLALITY AND HYPONATREMIA SNOMED Code(s): 57342105 Comment: - Na 125 today, noted urine lytes and serum sodium - Continue low sodium diet, NS started at 50ml/hr (5) Leukocytosis Code(s): D72.829 - ELEVATED WHITE BLOOD CELL COUNT, UNSPECIFIED SNOMED Code(s) : 674699384 Comment: - Ba-cultured, cultures negative to date - Does not appear to be acutely infected - Remains afebtile - Continue ceftriaxone empirically, as patient is currently decompensated (6) GI bleeding Code(s): K92.2 - GASTROINTESTINAL HEMORRHAGE, UNSPECIFIED SNOMED Code(s): 40765641 Comment: - Recent GI bleed, continues with heme-positive stool - No hematemesis, no melena - Unclear if he has varices, records from previous admission pending - Continue PPI - Monitor H&H daily, appears stable today - Appreciate further recs from GI (7) Alcohol abuse Code(s): F10.10 - ALCOHOL ABUSE, UNCOMPLICATED SNOMED Code(s): 43351131 Comment: - Last drink 04/22/2018 per record - Would not be a transplant candidate 2/2 active ETOH use (8) Hyperbilirubinemia Code(s): E80.6 - OTHER DISORDERS OF BILIRUBIN METABOLISM SNOMED Code(s): 82366114 Comment: - Bili reamins elevated, 19 today - Physically jaundiced, continue to monitor closely (9) DVT prophylaxis Code(s): ODR3679 - SNOMED Code(s): 039513436 Comment: - High risk for bleeding, SCDs only (10) Full code status Code(s): Z78.9 - OTHER SPECIFIED HEALTH STATUS SNOMED Code(s): 009779838 Comment: - Depending on current course, code status should be discussed at some point during this hospitalization Status and Disposition: Inpatient: Critical, prognosis is poor. Appreciate recommendations from all disciplines.
--- NOTE | 2018-05-21 19:49 | PN ---
Progress Note - Progress Note Date of Service: 05/21/18 Note: BRIEF GASTROENTEROLOGY NOTE Reviewed chart. Met with patient and spoke with primary team. IE: No acute events. S: No complaints. States that his abdomen is not uncomfortable, although it is filling with ascites again. States he is able to eat food better today. Seems to be in fairly good spirits, although it is not clear how much insight he has into current medical disease/prognosis. O: VSS -- T 99.2, BP 90s/60s, HR 60s-70s GEN: Chronically ill-appearing, jaundiced gentleman. NAD. Sitting up in bed eating dinner. HEENT: MMM, Scleral icterus CV: RRR Pulm: Decreased air movement. Abd: +BS. Soft, very distended with ascites. Non-tender Ext: + edema. SCDs in place. Skin: ++ Jaundice Labs reviewed. WBC down to 16.6 (from 18.3). Na 125. Cr stable -- 3.23 (from 3.4 ). AST 80, ALT 15, Alk phos 178, Bilirubin 19.7. Albumin 2.7. INR 1.95 yesterday. Impression/Recommendations: 53yM with alcoholic cirrhosis complicated by acute decompensation recently in setting of recent hospitalization at [facility] with GIB of unclear etiology ( required transfusions), who is now admitted with progressive ascites, renal failure, and acute on chronic liver failure. MELD-Na 38 -- very poor prognosis. Unclear if rising bilirubin is secondary to alcoholic hepatitis vs acute on chronic liver disease w/ decompensation. Possible triggers for decompensation include renal failure and recent GIB. Gallbladder does appear to be distended with thickening on US, which raises some concern for possible cholecystitis as infectious trigger for decompensation. However, patient does not have RUQ tenderness. Patient remains in borderline oliguric renal failure despite fluid resuscitation with colloid and crystalloid. Presentation concerning for hepatorenal syndrome, particularly given hyponatremia and low urine sodium. Recent insults on kidney (only one kidney - congenital) include increased diuretics and several paracenteses coupled with poor po intake. - Continue daily MELD labs - Continue to monitor UOP - Recommend MOA therapy for probable HRS. Start Octreotide (infusion or subcutaneous injection), continue Midodrine (consider increasing to 15 mg TID depending on BP over next 12-24 hours), Continue Albumin 25 grams BID for goal Albumin >/= 3.5. - Limit paracentesis to <4 liters (and give extra albumin) -- would defer for now as patient's abdomen not tense - Continue low sodium diet (<2 grams/day) - No clear indication for antibiotics, although distended/thickened gallbladder and leukocytosis raises concern for cholecystitis. Thickened gallbladder can also occur secondary to ascites, although typically this would not cause distention of GB. Can consider HIDA scan, although this may be abnormal given elevated bilirubin and liver disease. Would discuss with radiology. Certainly patient would be a very poor surgical candidate at present time. Therefore, it is not unreasonable to consider antibiotics for right now -- consider escalating to broader coverage if patient has clinical deterioration. - Consider transfer to transplant center ([place]) for evaluation depending on clinical course. He is not an ideal candidate given <6 months of sobriety; however, this is not always an absolute contraindication to starting a transplant evaluation. GI will continue to follow.
[2018-05-21] MEDS: Albumin Human 25%* 50 GM/200 ML BTL IV SCH (20:38)
[2018-05-22 05:31] LABS: Hematocrit 29 % (42-52); Hemoglobin 9.7 g/dl (14.0-18.0); Mean Corpuscular HGB Conc 34 g/dl (31-36); Mean Corpuscular Hemoglobin 36 pg (27-31); Mean Corpuscular Volume 105 fL (80-94); Platelet Count 89 10^3/ul (150-450); Red Blood Count 2.72 10^6/ul (4.00-5.40); Red Cell Distribution Width 20 % (10.5-15); White Blood Count 15.6 10^3/ul (3.5-10.8)
[2018-05-22 05:44] LABS: EGFR Non-African American 20.6 (>60)
[2018-05-22 05:53] LABS: ABS Basophils 0 10^3/ul (0-0.2); ABS Eosinophils 0.2 10^3/ul (0-0.6); ABS Neutrophils 13.4 10^3/ul (1.5-7.7); ABS Nucleated RBC 0 10^3/ul; Eosinophil % 1.4 %; Lymphocyte % 6.1 %; Nucleated Red Blood Cells % 0
--- NOTE | 2018-05-22 06:10 | PN ---
AMENDED REPORT NOW INCLUDES DATE OF SERVICE - ESIGNED BEFORE ADJUSTMENT PROGRESS NOTE: DATE OF SERVICE: 05/21/18 SUBJECTIVE: Mr. Oakes is about the same as he was. He is eating reasonably well. He denies shortness of breath or chest pain. He feels that his abdominal girth is expanding. He denies abdominal pain. His diarrhea from the lactulose has slowed up somewhat. His weight is up slightly from admission. PHYSICAL EXAMINATION: His blood pressure is 81/50 with a pulse of 66, respirations are 15. Chest is clear. The heart revealed a regular rhythm without murmurs. The abdomen is markedly distended with positive fluid wave. It does feel a little firmer to me today. LABORATORY DATA: His white count is down to 16.6 with a hemoglobin of 11.1. His INR is 1.95. His sodium is 125, potassium 3.9, total CO2 of 16, chloride of 97, BUN 63, creatinine 3.23. His albumin level is 2.7, bilirubin is 19.7. IMPRESSION: 1. Acute renal failure. 2. Hepatic decompensation. It is not clear how much of this is cirrhosis versus how much of this is alcoholic hepatitis. We probably want to see another protime in the very future to see if he has continued to have some synthetic capacity. I would probably repeat the prealbumin as well. I think we probably ought to push up the lactulose dose a bit. I have the discussed the case with Amada Lozano NP. [id number]/[facility] #: [id number] MTDLara
--- NOTE | 2018-05-22 07:40 | PN ---
Subjective Date of Service: 05/22/18 Interval History: Mr. Oakes notes abdominal fullness and distention but states that it is not too severe. He denies other complaint including chest pain, SOB, nausea, or abdominal pain. Objective Active Medications: Ceftriaxone Sodium 2 gm/ (Sodium Chloride) 100 mls @ 200 mls/hr IVPB Q24H [facility] Octreotide Acetate 500 mcg/ (Sodium Chloride) 101 mls @ 10.1 mls/hr IVPB Q10H [facility] Albumin Human (Albumin Human 25%*) 50 gm in 200 mls @ 100 mls/hr IV BID [facility] Lactulose (Lactulose*) 15 ml PO TID [facility]ATH[facility] Midodrine (Midodrine (Nf)) 10 mg PO TID HEATHER; Protocol Omeprazole (Prilosec Cap*) 20 mg PO DAILY [facility]ATHER Ondansetron HCl (Zofran Inj*) 4 mg IV Q6H PRN Spironolactone (Aldactone Tab*) 150 mg PO DAILY HEATHER Vital Signs: Temp Pulse Resp BP Pulse Ox 100.7 F 111 18 94/63 96 05/22/18 03:08 05/22/18 06:09 05/22/18 06:00 05/22/18 06:00 05/22/18 06:09 Oxygen Devices in Use Now: None Appearance: Male lying in bed in NAD Eyes: No Scleral Icterus Ears/Nose/Mouth/Throat: Mucous Membranes Moist Neck: Trachea Midline Respiratory: Symmetrical Chest Expansion and Respiratory Effort, Clear to Auscultation Cardiovascular: NL Sounds; No Murmurs; No JVD, No Edema Abdominal: - - Distended, soft, nontender Extremities: No Edema Skin: No Rash or Ulcers Neurological: Alert and Oriented x 3, NL Muscle Strength and Tone Nutrition: Taking PO's Result Diagrams: 05/22/18 05:10 05/22/18 10:20 Microbiology and Other Data: . Assess/Plan/Problems-Billing Assessment: Mr. Oakes is a 53 year old male with history of ETOH cirrhosis that presented to the ER with abdominal pain and distention 2/2 ascites, currently in decompensated liver failure now suspected to be in hepatorenal syndrome. - Patient Problems (1) Alcoholic cirrhosis of liver with ascites Comment: - Bilirubin continues to fall slowly, Plts falling at 89, INR 1.95. - Appreciate GI consult, follows with Dr. Urban outpatient - Have not identified any acute issue that would have led to decompensation. Remains concern about GI bleed, GI considered upper endoscopy in AM to rule out varices. No clear evidence of infection. - Continue midodrine, spironolactone, octreotide, and albumin. - MELD score still 39 with nearly 60% mortality rate in 90 days. In setting of concern for development of hepatorenal syndrome will contact [facility] transplant team in AM, though patient's last drink was 04/22/18 (2) Acute renal failure Comment: - Creatinine essentially unchanged at 3.19, 1050 urine output yesterday - Appreciate Dr. Turner input, concern for hepatorenal syndrome in the setting of cirrhosis, patient also with congenital single kidney - Continue midodrine TID - Dr. Turner recommends addition of sodium bicarbonate, no indication for dialysis (3) Encephalopathy acute Comment: - Mentating appropriately - Ammonia beginning to trend down - Continue lactulose at current dosing (4) GI bleeding Comment: - Hgb trending down. - Recent GI bleed, continues with heme-positive stool. No hematemesis, no melena. - No report of varices on last endoscopy at outpatient facility per patient family, GI considering re-scoping. - Continue PPI. (5) Hyponatremia Comment: - Na remains 125, noted urine lytes and serum sodium - Continue low sodium diet, NS started at 50ml/hr (6) Alcohol abuse Comment: - Last drink 04/22/2018 - Would not be a transplant candidate 2/2 active ETOH use (7) Leukocytosis Comment: - Remains afebrile. UA negative, Cxray negative, BC negative. No clear evidence of infection - Continue ceftriaxone empirically, as patient is currently decompensated (8) DVT prophylaxis Comment: - High risk for bleeding, SCDs only (9) Full code status Comment: - Depending on current course, code status should be discussed at some point during this hospitalization Status and Disposition: Inpatient: Critical, prognosis is poor. Appreciate recommendations from all disciplines.
[2018-05-22] MEDS: Octreotide Acetate* 500 MCG in NS 0.9% 100 ML* 100 ML IVPB SCH ×2 (08:20→19:11)
[2018-05-22] MEDS: Albumin Human 25%* 50 GM/200 ML BTL IV SCH ×4 (09:20→22:03)
[2018-05-22] MEDS: Lactulose* 15 ML UDC PO SCH ×3 (09:21→21:36)
[2018-05-22] MEDS: CMC:Midodrine (NF) 5 MG TAB PO SCH ×3 (09:21→21:37)
[2018-05-22] MEDS: Omeprazole CAP* 20 MG PO SCH (09:22)
[2018-05-22] MEDS: Spironolactone TAB* 25 MG PO SCH (09:22)
[2018-05-22 10:58] LABS: INR 2.35 (0.77-1.02)
[2018-05-22] MEDS: Sodium Bicarbonate (ANTACID)* 650 MG TAB PO SCH ×2 (12:31→19:11)
[2018-05-22] MEDS: cefTRIAXone(*) 2 GM in NS 0.9% 100 ML* 100 ML IVPB SCH (12:31)
[2018-05-22 23:48] LABS: Hematocrit 28 % (42-52); Hemoglobin 9.3 g/dl (14.0-18.0)
[2018-05-23 04:42] LABS: Hematocrit 27 % (42-52); Hemoglobin 9.3 g/dl (14.0-18.0); Mean Corpuscular HGB Conc 34 g/dl (31-36); Mean Corpuscular Hemoglobin 36 pg (27-31); Mean Corpuscular Volume 105 fL (80-94); Mean Platelet Volume 8.8 fL (7.4-10.4); Platelet Count 70 10^3/ul (150-450); Red Blood Count 2.59 10^6/ul (4.00-5.40); Red Cell Distribution Width 19 % (10.5-15); White Blood Count 14.6 10^3/ul (3.5-10.8)
[2018-05-23 04:58] LABS: EGFR Non-African American 20.4 (>60)
[2018-05-23] MEDS: Octreotide Acetate* 500 MCG in NS 0.9% 100 ML* 100 ML IVPB SCH ×2 (05:30→15:42)
[2018-05-23 05:35] LABS: ABS Basophils 0.1 10^3/ul (0-0.2); ABS Eosinophils 0.2 10^3/ul (0-0.6); ABS Lymphocytes 0.9 10^3/ul (1.0-4.8); ABS Neutrophils 12.5 10^3/ul (1.5-7.7); ABS Nucleated RBC 0 10^3/ul; Eosinophil % 1.2 %; Lymphocyte % 6.2 %; Nucleated Red Blood Cells % 0.1
[2018-05-23 05:37] LABS: Schistocytes 1+
[2018-05-23] MEDS: CMC:Midodrine (NF) 5 MG TAB PO SCH (08:57)
[2018-05-23] MEDS: Lactulose* 15 ML UDC PO SCH ×2 (08:58→22:58)
[2018-05-23] MEDS: Omeprazole CAP* 20 MG PO SCH (08:58)
[2018-05-23] MEDS: Spironolactone TAB* 25 MG PO SCH (08:58)
[2018-05-23] MEDS: Sodium Bicarbonate (ANTACID)* 650 MG TAB PO SCH ×3 (08:58→17:48)
[2018-05-23] MEDS ORDERED: Albumin Human 25%* 50 GM/200 ML BTL IV SCH (10:40)
[2018-05-23] MEDS: Albumin Human 25%* 50 GM/200 ML BTL IV SCH ×2 (11:07→22:00)
[2018-05-23] MEDS: cefTRIAXone(*) 2 GM in NS 0.9% 100 ML* 100 ML IVPB SCH (13:00)
[2018-05-23] MEDS: Potassium Chlor TAB* 20 MEQ TAB.ER PO SCH ×3 (13:00→22:59)
--- NOTE | 2018-05-23 14:04 | PN ---
Subjective Date of Service: 05/23/18 Interval History: Mr. Oakes denies complaint today other than having some abdominal fullness. He denies chest pain, SOB, or nausea. Objective Active Medications: Ceftriaxone Sodium 2 gm/ (Sodium Chloride) 100 mls @ 200 mls/hr IVPB Q24H [facility] Octreotide Acetate 500 mcg/ (Sodium Chloride) 101 mls @ 10.1 mls/hr IVPB Q10H [facility] Albumin Human (Albumin Human 25%*) 50 gm in 200 mls @ 100 mls/hr IV 0900,2100 [facility]ER Lactulose (Lactulose*) 15 ml PO BID [facility]ER Midodrine (Midodrine (Nf)) 15 mg PO TID [facility]ATHER; Protocol Omeprazole (Prilosec Cap*) 20 mg PO DAILY [facility]ATHER Ondansetron HCl (Zofran Inj*) 4 mg IV Q6H PRN Potassium Chloride (Klor Con Er Tab*) 20 meq PO Q4H [facility]ATHER Sodium Bicarbonate (Sodium Bicarbonate (Antacid)*) 650 mg PO AC HEATHER Spironolactone (Aldactone Tab*) 150 mg PO DAILY HEATHER Vital Signs: Temp Pulse Resp BP Pulse Ox 99.8 F 90 16 113/76 96 05/23/18 07:58 05/23/18 11:01 05/23/18 11:01 05/23/18 11:00 05/23/18 11:01 Oxygen Devices in Use Now: None Appearance: Male lying in bed in NAD Eyes: No Scleral Icterus Ears/Nose/Mouth/Throat: Mucous Membranes Moist Neck: Trachea Midline Respiratory: Symmetrical Chest Expansion and Respiratory Effort, Clear to Auscultation Cardiovascular: NL Sounds; No Murmurs; No JVD, No Edema Abdominal: - - Soft, distended Extremities: No Edema Skin: No Rash or Ulcers Neurological: Alert and Oriented x 3, NL Muscle Strength and Tone Nutrition: Taking PO's Result Diagrams: 05/23/18 04:25 05/23/18 04:25 Microbiology and Other Data: . Assess/Plan/Problems-Billing Assessment: Mr. Oakes is a 53 year old male with history of ETOH cirrhosis that presented to the ER with abdominal pain and distention 2/2 ascites, currently in decompensated liver failure now suspected to be in hepatorenal syndrome. - Patient Problems (1) Alcoholic cirrhosis of liver with ascites Comment: - No change despite maximal MOA therapy - Contacted [facility] team, patient not a candidate for transfer for eval for transplant. Last drink 04/22/18. - Appreciate GI consult, follows with Dr. Neumann-Judy outpatient - Have not identified any acute issue that would have led to decompensation. No evidence of infection. Patient anemic with GUIAC positive stools, however suspect this is due to portal hypertensive gastrophathy, had recent scope negative for varices, Hgb stable. - Continue midodrine (increased today), spironolactone, octreotide, and albumin. Stop albumin when albumin > 3.5 - MELD score still 39 with nearly 60% mortality rate in 90 days. (2) Acute renal failure Comment: - Creatinine essentially unchanged at 3.19, not oliguric though - Appreciate Dr. Turner input, concern for hepatorenal syndrome in the setting of cirrhosis, patient also with congenital single kidney - Continue midodrine TID (dose increased today) - Dr. Turner recommends addition of sodium bicarbonate, no indication for dialysis (3) Encephalopathy acute Comment: - Mentating appropriately - Ammonia beginning to trend down, given frequent BMs will decrease dose of lactulose (4) GI bleeding Comment: - Hgb stable - Recent GI bleed, continues with heme-positive stool. No hematemesis, no melena. - No report of varices on last endoscopy at outpatient facility per patient family, GI suspects patient may be having slow bleed from portal hypertensive gastropathy and that the significant drop since admission was related to heme- concentration on arrival - Continue PPI. (5) Hyponatremia Comment: - Na remains 125, noted urine lytes and serum sodium (6) Leukocytosis Comment: - Remains afebrile. UA negative, Cxray negative, BC negative. No clear evidence of infection - Continue ceftriaxone empirically, as patient is currently decompensated (7) DVT prophylaxis Comment: - High risk for bleeding, SCDs only (8) Full code status Comment: - Depending on current course, code status should be discussed at some point during this hospitalization Status and Disposition: Inpatient: Critical, prognosis is poor. Appreciate recommendations from all disciplines.
[2018-05-23] MEDS: CMCS:Midodrine (NF) 5 MG TAB PO SCH ×2 (15:00→22:58)
--- NOTE | 2018-05-23 16:59 | PN ---
Progress Note - Progress Note Date of Service: 05/23/18 Note: Reviewed chart. Met with patient and spoke with primary team. IE: Urine output picking up (1-2 liters/day). Cr stable. Hgb relatively stable ( 9.7 > 9.3 > 9.3). No overt bleeding. S: No complaints. States that his abdomen is not uncomfortable, although it is filling with ascites again. Hungry. O: VSS -- AF, HR 80s-90s, BP 94/57 GEN: Chronically ill-appearing, jaundiced gentleman. NAD. Sitting up in bed HEENT: Scleral icterus CV: RRR Pulm: Decreased air movement. Abd: +BS. Soft, distended with ascites. Not tense. Non-tender Ext: + edema. SCDs in place. Skin: ++ Jaundice Labs reviewed. WBC 14.6. Na 125. Cr stable -- 3.22 (from 3.19). AST 84, ALT 14, Alk phos 116, Bilirubin 19. Albumin 3.4. INR 2.35 yesterday. Impression/Recommendations: 53yM with alcoholic cirrhosis complicated by acute decompensation recently in setting of recent hospitalization at [facility] with GIB of unclear etiology ( required transfusions), who is now admitted with progressive ascites, renal failure, and acute on chronic liver failure. MELD-Na 39 -- very poor prognosis. Elevated bilirubin likely secondary to acute on chronic liver disease w/ decompensation. Unclear if alcoholic hepatitis contributing. Possible triggers for decompensation include renal failure and recent GIB. Gallbladder does appear to be distended with thickening on US, which raises some concern for possible cholecystitis as infectious trigger for decompensation. Patient remains in renal failure despite fluid resuscitation with colloid and crystalloid, although his urine output has improved. Presentation concerning for hepatorenal syndrome, particularly given hyponatremia and low urine sodium. Recent insults on kidney (only one kidney - congenital) include increased diuretics and several paracenteses coupled with poor po intake. Regarding anemia with positive occult stool, patient's Hgb/Hct do not appear to be dropping significantly over last few checks. No overt bleeding. EGD within past 4 weeks at [facility] demonstrated erythematous duodenum and portal hypertensive gastropathy without esophageal varices. Possible that acute drop was related to hemodilution (2/2 albumin) with chronic blood loss related to previously described GI findings. - Continue daily MELD labs - Continue to monitor UOP. Nephrology following. - Can give Vitamin K 10 mg IV x 1 given rising INR - Defer repeat EGD for now given absence of significant change in Hgb/Hct and absence of overt bleeding. Consider if clinical status change. - Continue MOA therapy for probable HRS. Continue Octreotide (infusion or subcutaneous injection), continue Midodrine (would increase to 15 mg TID), Continue Albumin 25 grams BID for goal Albumin >/= 3.5. - Limit paracentesis to <4 liters (and give extra albumin) -- would defer for now as patient's abdomen not tense - Continue low sodium diet (<2 grams/day) - No clear indication for antibiotics, although distended/thickened gallbladder and leukocytosis raises concern for cholecystitis. Thickened gallbladder can also occur secondary to ascites, although typically this would not cause distention of GB. HIDA scan unlikely to be helpful given hepatic dysfunction and very high bilirubin. Consider repeat US to evaluate for continued dilation of gallbladder. Certainly patient would be a very poor surgical candidate at present time. Therefore, it is not unreasonable to consider antibiotics for right now. - Consider transfer to transplant center ([place]) for evaluation depending on clinical course. He is not an ideal candidate given <6 months of sobriety; however, this is not always an absolute contraindication to starting a transplant evaluation. GI will continue to follow.
[2018-05-24] MEDS: Albumin Human 25%* 50 GM/200 ML BTL IV SCH ×3 (04:48→20:54)
[2018-05-24] MEDS: Octreotide Acetate* 500 MCG in NS 0.9% 100 ML* 100 ML IVPB SCH ×2 (06:31→17:26)
[2018-05-24 07:45] LABS: Hematocrit 28 % (42-52); Hemoglobin 9.7 g/dl (14.0-18.0); Mean Corpuscular HGB Conc 34 g/dl (31-36); Mean Corpuscular Hemoglobin 36 pg (27-31); Mean Corpuscular Volume 105 fL (80-94); Mean Platelet Volume 9.2 fL (7.4-10.4); Platelet Count 74 10^3/ul (150-450); Red Blood Count 2.69 10^6/ul (4.00-5.40); Red Cell Distribution Width 19 % (10.5-15); White Blood Count 15.7 10^3/ul (3.5-10.8)
[2018-05-24 08:05] LABS: EGFR Non-African American 18.9 (>60)
[2018-05-24] MEDS: Lactulose* 15 ML UDC PO SCH ×2 (08:40→20:53)
[2018-05-24] MEDS: Sodium Bicarbonate (ANTACID)* 650 MG TAB PO SCH ×3 (08:41→17:26)
[2018-05-24] MEDS: CMCS:Midodrine (NF) 5 MG TAB PO SCH ×3 (08:41→20:52)
[2018-05-24] MEDS: Spironolactone TAB* 25 MG PO SCH (08:41)
[2018-05-24] MEDS: Omeprazole CAP* 20 MG PO SCH (08:41)
[2018-05-24 09:03] LABS: ABS Basophils 0.1 10^3/ul (0-0.2); ABS Eosinophils 0.1 10^3/ul (0-0.6); ABS Lymphocytes 0.9 10^3/ul (1.0-4.8); ABS Monocytes 1.3 10^3/ul (0-0.8); ABS Neutrophils 13.3 10^3/ul (1.5-7.7); ABS Nucleated RBC 0 10^3/ul; Eosinophil % 0.9 %; Lymphocyte % 5.5 %; Nucleated Red Blood Cells % 0
[2018-05-24 10:39] LABS: INR 2.66 (0.77-1.02)
[2018-05-24] MEDS ORDERED: Phytonadione IV (Adult)* 10 MG/ML 1 ML AMP IV ONE (11:53)
--- NOTE | 2018-05-24 12:03 | PN ---
Subjective Date of Service: 05/24/18 Interval History: Patient seen examined. No acute overnight events. Notes and chart from last 48 hours reviewed. Patient states he feels "full" with fluid, denies abdominal pain , no fevers or chills. Objective Active Medications: Ceftriaxone Sodium 2 gm/ (Sodium Chloride) 100 mls @ 200 mls/hr IVPB Q24H [facility] Last Admin: 05/23/18 13:00 Dose: 200 mls/hr Octreotide Acetate 500 mcg/ (Sodium Chloride) 101 mls @ 10.1 mls/hr IVPB Q10H [facility] Last Admin: 05/24/18 06:31 Dose: 10.1 mls/hr Albumin Human (Albumin Human 25%*) 50 gm in 200 mls @ 100 mls/hr IV 0900,2100 [facility] Last Admin: 05/24/18 08:41 Dose: 100 mls/hr Lactulose (Lactulose*) 15 ml PO BID [facility] Last Admin: 05/24/18 08:40 Dose: 15 ml Midodrine (Midodrine (Nf)) 15 mg PO TID [facility]; Protocol Last Admin: 05/24/18 08:41 Dose: 15 mg Omeprazole (Prilosec Cap*) 20 mg PO DAILY [facility] Last Admin: 05/24/18 08:41 Dose: 20 mg Ondansetron HCl (Zofran Inj*) 4 mg IV Q6H PRN PRN Reason: NAUSEA Phytonadione (Vitamin K1 Inj (Adult)*) 10 mg IV ONCE ONE Stop: 05/24/18 11:54 Sodium Bicarbonate (Sodium Bicarbonate (Antacid)*) 650 mg PO AC [facility] Last Admin: 05/24/18 08:41 Dose: 650 mg Spironolactone (Aldactone Tab*) 150 mg PO DAILY [facility] Last Admin: 05/24/18 08:41 Dose: 150 mg Vital Signs - 8 hr 05/24/18 05/24/18 07:14 08:00 Temperature 98.2 F Pulse Rate 79 Respiratory 17 16 Rate Blood Pressure 98/49 (mmHg) O2 Sat by Pulse 97 Oximetry Oxygen Devices in Use Now: None Appearance: alert, jaundiced, NAD Eyes: PERRLA, - - icteric sclerae Ears/Nose/Mouth/Throat: Clear Oropharnyx, Mucous Membranes Moist Neck: NL Appearance and Movements; NL JVP, Trachea Midline Respiratory: Symmetrical Chest Expansion and Respiratory Effort, - - mild expiratory wheeze noted at bases bilaterally Cardiovascular: NL Sounds; No Murmurs; No JVD, RRR, No Edema Abdominal: - - ascites, distension, mildly firm Extremities: No Edema, No Clubbing, Cyanosis Skin: No Rash or Ulcers Neurological: Alert and Oriented x 3 Nutrition: Taking PO's Result Diagrams: 05/24/18 07:32 05/24/18 07:32 Microbiology and Other Data: . Assess/Plan/Problems-Billing Assessment: This is a 53 year old male with history of ETOH cirrhosis that presented to the ER with abdominal pain and distention 2/2 ascites, currently in decompensated liver failure, hepatorenal syndrome, with MELD of 39. - Patient Problems (1) Alcoholic cirrhosis of liver with ascites Code(s): K70.31 - ALCOHOLIC CIRRHOSIS OF LIVER WITH ASCITES SNOMED Code(s): 787634894 Comment: - No change despite maximal MOA therapy, INR and creatinine continuing to rise - [facility] declines transfer/admission; last drink 04/22/18. - GI/Dr. Urban following - Have not identified any acute issue that would have led to decompensation. No evidence of infection. Patient anemic with GUIAC positive stools, however suspect this is due to portal hypertensive gastrophathy, had recent scope negative for varices, Hgb stable. - Continue midodrine at 15mg TID, spironolactone, octreotide, and albumin. Stop albumin when albumin > 3.5 - MELD score still 39 with nearly 60% mortality rate in 90 days - Will scan gallbladder again to determine if any acute pathology that may be contributing (2) Encephalopathy acute Code(s): G93.40 - ENCEPHALOPATHY, UNSPECIFIED SNOMED Code(s): 10680996 Comment: - Currently appropriate, titrating lactulose, ammonia trending down (3) Acute renal failure Comment: - Creatinine 3.44 today, urine output improved last 48 hours - Appreciate any further recs from nephro, sodium bicarb added, no indication for dialysis at this time; patient also with congenital single kidney - Continue midodrine TID at higher dose, BP low/stable (4) Hyponatremia Code(s): E87.1 - HYPO-OSMOLALITY AND HYPONATREMIA SNOMED Code(s): 42525738 Comment: - Sodium 130 today/improved, continue to monitor (5) Leukocytosis Code(s): D72.829 - ELEVATED WHITE BLOOD CELL COUNT, UNSPECIFIED SNOMED Code(s) : 925191471 Comment: - Remains afebrile. UA negative, Cxray negative, BC negative. No clear evidence of infection, will US gallbladder again today to identify as potential source - Continue ceftriaxone empirically, as patient is currently decompensated (6) GI bleeding Code(s): K92.2 - GASTROINTESTINAL HEMORRHAGE, UNSPECIFIED SNOMED Code(s): 56423996 Comment: - GI suspects patient may be having slow bleed from portal hypertensive gastropathy and that the significant drop since admission was related to heme-concentration on arrival - Continue PPI and medical management (7) Alcohol abuse Code(s): F10.10 - ALCOHOL ABUSE, UNCOMPLICATED SNOMED Code(s): 66307299 Comment: - Last drink 04/22/2018 - Would not be a transplant candidate 2/2 recent ETOH use - No s/s of withdrawal (8) Hyperbilirubinemia Code(s): E80.6 - OTHER DISORDERS OF BILIRUBIN METABOLISM SNOMED Code(s): 21816470 Comment: - Bili remains critically elevated at 21.3 - Physically jaundiced - Eval US today (9) DVT prophylaxis Code(s): BLS5823 - SNOMED Code(s): 092888254 Comment: - High risk for bleeding, SCDs only (10) Full code status Code(s): Z78.9 - OTHER SPECIFIED HEALTH STATUS SNOMED Code(s): 202175594 Comment: - Depending on current course, code status should be discussed at some point during this hospitalization Status and Disposition: Inpatient: Critical, prognosis is poor. Appreciate recommendations from all disciplines. May want to consider palliative consult if patient continues to decompensate.
[2018-05-24] MEDS: cefTRIAXone(*) 2 GM in NS 0.9% 100 ML* 100 ML IVPB SCH (12:10)
[2018-05-24] MEDS ORDERED: Phytonadione 10 mg in 50 mL NS over 30 min IV ONE (13:00)
[2018-05-25] MEDS: Octreotide Acetate* 500 MCG in NS 0.9% 100 ML* 100 ML IVPB SCH ×3 (05:38→16:36)
[2018-05-25 09:15] LABS: Hematocrit 29 % (42-52); Hemoglobin 9.8 g/dl (14.0-18.0); Mean Corpuscular HGB Conc 34 g/dl (31-36); Mean Corpuscular Hemoglobin 36 pg (27-31); Mean Corpuscular Volume 106 fL (80-94); Mean Platelet Volume 9.4 fL (7.4-10.4); Platelet Count 72 10^3/ul (150-450); Red Blood Count 2.73 10^6/ul (4.00-5.40); Red Cell Distribution Width 19 % (10.5-15); White Blood Count 15.4 10^3/ul (3.5-10.8)
[2018-05-25 09:18] LABS: INR 2.59 (0.77-1.02)
[2018-05-25] MEDS: Albumin Human 25%* 50 GM/200 ML BTL IV SCH (09:19)
[2018-05-25] MEDS: Sodium Bicarbonate (ANTACID)* 650 MG TAB PO SCH ×3 (09:20→16:36)
[2018-05-25] MEDS: Omeprazole CAP* 20 MG PO SCH (09:21)
[2018-05-25] MEDS: CMCS:Midodrine (NF) 5 MG TAB PO SCH ×3 (09:21→20:32)
[2018-05-25] MEDS: Lactulose* 15 ML UDC PO SCH ×3 (09:21→20:33)
[2018-05-25] MEDS: Spironolactone TAB* 25 MG PO SCH (09:21)
[2018-05-25 09:29] LABS: EGFR Non-African American 20.1 (>60)
[2018-05-25 09:40] LABS: ABS Basophils 0.1 10^3/ul (0-0.2); ABS Eosinophils 0.2 10^3/ul (0-0.6); ABS Lymphocytes 0.8 10^3/ul (1.0-4.8); ABS Monocytes 1.3 10^3/ul (0-0.8); ABS Nucleated RBC 0 10^3/ul; Eosinophil % 1.1 %; Nucleated Red Blood Cells % 0.1
[2018-05-25] MEDS ORDERED: Phytonadione IV (Adult)* 10 MG/ML 1 ML AMP IV SCH (11:00)
--- NOTE | 2018-05-25 11:19 | PN ---
Subjective Date of Service: 05/25/18 Interval History: Patient seen and examined. Very upset about last evening. States someone from staff refused to help him to the bathroom. Patient cannot recall name. Discussed with daytime RN who will investigate. Assured patient that are staff are to help patients when needed and that we will work to correct any issues. Otherwise, no further overnight events. Observed patient ambulating to the bathroom with minimal assistance. States he still feels abdominal fullness but no overt pain, denies n/v, no fevers or chills. Objective Active Medications: Octreotide Acetate 500 mcg/ (Sodium Chloride) 101 mls @ 10.1 mls/hr IVPB Q10H [facility] Last Admin: 05/25/18 05:48 Dose: Not Given Albumin Human (Albumin Human 25%*) 25 gm in 100 mls @ 100 mls/hr IV 0900,2100 [facility] Phytonadione 10 mg/ Sodium (Chloride) 51 mls @ 102 mls/hr IV Q24H [facility]; Protocol Stop: 05/27/18 11:29 Lactulose (Lactulose*) 15 ml PO BID [facility] Last Admin: 05/25/18 09:21 Dose: 15 ml Midodrine (Midodrine (Nf)) 15 mg PO TID [facility]; Protocol Last Admin: 05/25/18 09:21 Dose: 15 mg Ondansetron HCl (Zofran Inj*) 4 mg IV Q6H PRN PRN Reason: NAUSEA Pantoprazole Sodium (Protonix Tab (Nf)) 40 mg PO DAILY [facility] Prednisolone Sodium Phosphate (Prednisolone 3 Mg/Ml 5 Ml Oral.Solution*) 40 mg PO DAILY [facility]; Protocol Stop: 06/01/18 10:59 Sodium Bicarbonate (Sodium Bicarbonate (Antacid)*) 650 mg PO AC [facility] Last Admin: 05/25/18 09:20 Dose: 650 mg Spironolactone (Aldactone Tab*) 150 mg PO DAILY [facility] Last Admin: 05/25/18 09:21 Dose: 150 mg Vital Signs - 8 hr 05/25/18 05/25/18 05/25/18 03:23 07:36 08:00 Temperature 97.9 F 98.2 F Pulse Rate 65 74 Respiratory 18 17 16 Rate Blood Pressure 97/53 130/71 (mmHg) O2 Sat by Pulse 99 99 Oximetry 05/25/18 05/25/18 09:15 09:45 Temperature 97.6 F 98.0 F Pulse Rate 74 74 Respiratory 18 18 Rate Blood Pressure 110/68 106/68 (mmHg) O2 Sat by Pulse 100 98 Oximetry Oxygen Devices in Use Now: None Appearance: alert, increasing jaundice, NAD Eyes: PERRLA - icteric sclerae worsening Ears/Nose/Mouth/Throat: - - dry oral mucosa Neck: NL Appearance and Movements; NL JVP, Trachea Midline Respiratory: Symmetrical Chest Expansion and Respiratory Effort, Clear to Auscultation Cardiovascular: NL Sounds; No Murmurs; No JVD, RRR, No Edema Abdominal: - - firm, distended, large Extremities: No Edema, No Clubbing, Cyanosis Skin: No Rash or Ulcers, - - mod-sever jaundice, dry Neurological: Alert and Oriented x 3, NL Sensation Nutrition: Taking PO's Result Diagrams: 05/25/18 09:06 05/25/18 09:06 Microbiology and Other Data: . Diagnostic Imaging: Patient Name: JEAN YODER Medical Record#: [id number] Ordering Physician: Amada Lozano NP Acct.#: [id number] : 1965 Age: 53 Sex: M Location: [address] [place] [address] - MEDICAL Exam Date: 05/24/18 1013 ADM Status: ADM IN Order Information: GALL BLADDER Accession Number: [id number] CPT: 56830 INDICATION: Evaluate for cholecystitis. COMPARISON: Comparison is made with a prior study from May 19, 2018. TECHNIQUE: Multiple real-time images of the right upper quadrant were obtained. FINDINGS: There is sludge present within the gallbladder. No gallstones are seen. The gallbladder was thickened possibly due to the surrounding ascites and unchanged from the prior study. No positive sonographic Benjamin sign was present. No intra or extrahepatic ductal distention is present. The common bile duct was not well visualized. The liver is enlarged with a mildly nodular contour suggesting the possibility of cirrhosis. No focal abnormality is seen. The pancreas is obscured by overlying bowel gas. The right kidney is normal in size without evidence for hydronephrosis. There is a moderate amount of ascites. IMPRESSION: 1. ASCITES. 2. SLUDGE IN GALLBLADDER ANDWALL THICKENING UNCHANGED. THE WALL THICKENING IS LIKELY DUE TO ASCITES. 3. HEPATOMEGALY AND MILDLY NODULAR CONTOUR RAISING THE POSSIBILITY OF CIRRHOSIS. Assess/Plan/Problems-Billing Assessment: This is a 53 year old male with history of ETOH cirrhosis that presented to the ER with abdominal pain and distention 2/2 ascites, currently in decompensated liver failure, hepatorenal syndrome, with MELD of 39. - Patient Problems (1) Alcoholic cirrhosis of liver with ascites Code(s): K70.31 - ALCOHOLIC CIRRHOSIS OF LIVER WITH ASCITES SNOMED Code(s): 547129634 Comment: - Esentially no progress despite maximal MOA therapy; continue midodrine at 15mg TID, spironolactone, octreotide, and albumin. Stop albumin when albumin > 3.5 likely tomorrow - INR and creatinine continuing to rise, add 10 of K IV x3 days and monitor INR (no appreciable improvement after dose yesterday) and continue bicarb - [facility] declines transfer/admission; last drink 04/22/18. - MELD score increased to 40 today, indicating 71.3% chance of mortality on 90 days - Adjust albumin to 25gm BID, add prednisolone 40mg daily to treat alcoholic cirrhosis, as per Dr. Urban recommendaion, will stop ceftriaxone, does not appear infected, leukocytosis is likely r/t cirrhosis - Gallbladder without acute pathology per repeat US yesterday - Abdominal girth increasing, will likely need tap tomorrow or saturday - Appreciate any further recs from GI and nephrology (2) Encephalopathy acute Code(s): G93.40 - ENCEPHALOPATHY, UNSPECIFIED SNOMED Code(s): 98415787 Comment: - Currently appropriate but he may be having intermittent forgetfulness - Continue lactulose, ammonia trending down (3) Acute renal failure Comment: - Creatinine 3.22 today, urine output improved last 48 hours - Appreciate any further recs from nephro, sodium bicarb added, no indication for dialysis at this time; patient also with congenital single kidney - Continue midodrine TID at higher dose, BP low/stable (4) Hyponatremia Code(s): E87.1 - HYPO-OSMOLALITY AND HYPONATREMIA SNOMED Code(s): 71167076 Comment: - Sodium 133 today/improved, continue to monitor (5) Leukocytosis Code(s): D72.829 - ELEVATED WHITE BLOOD CELL COUNT, UNSPECIFIED SNOMED Code(s) : 743022598 Comment: - Remains afebrile. UA negative, Cxray negative, BC negative. No clear evidence of infection, gallbladder US also negative - Will DC ceftriaxone today, leukocytosis is persistent but likely r/t cirrhosis and not acute infection (6) GI bleeding Code(s): K92.2 - GASTROINTESTINAL HEMORRHAGE, UNSPECIFIED SNOMED Code(s): 29089432 Comment: - GI suspects patient may be having slow bleed from portal hypertensive gastropathy and that the significant drop since admission was related to heme-concentration on arrival - Continue PPI daily - H&H low stable (7) Alcohol abuse Code(s): F10.10 - ALCOHOL ABUSE, UNCOMPLICATED SNOMED Code(s): 96241703 Comment: - Last drink 04/22/2018 - Would not be a transplant candidate at [place] 2/2 recent ETOH use - No s/s of withdrawal (8) Hyperbilirubinemia Code(s): E80.6 - OTHER DISORDERS OF BILIRUBIN METABOLISM SNOMED Code(s): 92981780 Comment: - Bili remains critically elevated at 22.8 today - Physically jaundiced - No stones on gallbladder US (9) DVT prophylaxis Code(s): QJM2441 - SNOMED Code(s): 080877418 Comment: - High risk for bleeding, SCDs only (10) Full code status Code(s): Z78.9 - OTHER SPECIFIED HEALTH STATUS SNOMED Code(s): 270102280 Comment: - Depending on current course, code status should be discussed at some point during this hospitalization Status and Disposition: Inpatient: Critical, prognosis is poor. Appreciate recommendations from all disciplines. May want to consider palliative consult if patient continues to decompensate.
[2018-05-25] MEDS: Phytonadione 10 mg in 50 mL NS over 30 min IV SCH (12:51)
[2018-05-25] MEDS: PrednisoLONE 3 MG/ML ORAL.SOLU 15 MG/5 ML ORAL.SOLN PO SCH (12:57)
[2018-05-25] MEDS: CMC: Pantoprazole TAB (NF) 40 MG TAB PO SCH (12:57)
--- NOTE | 2018-05-25 16:54 | PN ---
Progress Note - Progress Note Date of Service: 05/25/18 Note: Brief GI Note Discussed with primary team and reviewed chart. No acute clinical change. Cr remains unchanged. Bilirubin slowly rising. Hct/Hgb stable. Patient with acute on chronic alcoholic liver failure with acute renal failure. Acute decompensation suspicious for alcoholic hepatitis. No signs of infection or active GI bleeding. Patient not accepted in transfer to [place] given recent ETOH use and concern for alcoholic hepatitis. - Start Prednisolone 40 mg/daily for alcoholic hepatitis (no PT available today , but DF certainly >32)-- plan to reassess after 7 days to determine if response - Vitamin K 10 mg IV x 3 days total given elevated INR - Continue MOA therapy and other recommendations as per prior GI note - Depending on clinical course, primary team could consider reaching out to [facility] for possible transfer if patient and family strongly desire. This program may consider pursuing transplant evaluation for a patient with alcoholic hepatitis. Anabelle Urban MD Gastroenterology
[2018-05-25] MEDS: Albumin Human 25%* 25 GM/100 ML BTL IV SCH (20:31)
[2018-05-26] MEDS: Octreotide Acetate* 500 MCG in NS 0.9% 100 ML* 100 ML IVPB SCH ×2 (03:49→14:18)
[2018-05-26 07:57] LABS: Hematocrit 28 % (42-52); Hemoglobin 9.6 g/dl (14.0-18.0); Mean Corpuscular HGB Conc 34 g/dl (31-36); Mean Corpuscular Hemoglobin 36 pg (27-31); Mean Corpuscular Volume 106 fL (80-94); Mean Platelet Volume 9.5 fL (7.4-10.4); Platelet Count 78 10^3/ul (150-450); Red Blood Count 2.66 10^6/ul (4.00-5.40); Red Cell Distribution Width 19 % (10.5-15); White Blood Count 17.2 10^3/ul (3.5-10.8)
[2018-05-26 08:06] LABS: EGFR Non-African American 20.1 (>60)
[2018-05-26] MEDS: Sodium Bicarbonate (ANTACID)* 650 MG TAB PO SCH ×3 (08:21→16:56)
[2018-05-26 08:22] LABS: ABS Basophils 0.1 10^3/ul (0-0.2); ABS Eosinophils 0 10^3/ul (0-0.6); ABS Lymphocytes 0.7 10^3/ul (1.0-4.8); ABS Monocytes 1.2 10^3/ul (0-0.8); ABS Neutrophils 15.2 10^3/ul (1.5-7.7); ABS Nucleated RBC 0 10^3/ul; Eosinophil % 0 %; Lymphocyte % 3.9 %; Nucleated Red Blood Cells % 0
[2018-05-26] MEDS: Albumin Human 25%* 25 GM/100 ML BTL IV SCH ×2 (09:14→21:12)
[2018-05-26] MEDS: Lactulose* 15 ML UDC PO SCH ×3 (09:15→21:13)
[2018-05-26] MEDS: CMCS:Midodrine (NF) 5 MG TAB PO SCH ×3 (09:17→21:13)
[2018-05-26] MEDS: Spironolactone TAB* 25 MG PO SCH (09:22)
[2018-05-26] MEDS: CMC: Pantoprazole TAB (NF) 40 MG TAB PO SCH (09:22)
[2018-05-26] MEDS: PrednisoLONE 3 MG/ML ORAL.SOLU 15 MG/5 ML ORAL.SOLN PO SCH (09:25)
[2018-05-26] MEDS: Phytonadione 10 mg in 50 mL NS over 30 min IV SCH (11:25)
--- NOTE | 2018-05-26 14:44 | CONSULT ---
Palliative / Hospice Consult Ordering Provider: Vijaya Borja Code Status: Full Code-Needs Follow Up Advance Directives Location: No Advance Directives MOLST Part A Completed: Yes - DNR Date: 05/26/18 MOLST Part E Completed:: Yes - DNI, CC only, no feeding tube HCP Completed: Yes - Lucy is HCP, per patient - History or Present Illness History or Present Illness: This 53 year old [email or web address] in home has a history of heavy alcohol abuse, and first noted a change in his level of energy and increasing abdominal girth in late March 2018, although others had commented on his "orange color" prior to that time. Hewas hospitalized in [place] and then in [place], has multiple PRBC transfusions, and rewquired frequent paracentesis yielding 1.5 L, 6.5 L, and 3.0 L, consecutively. 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 He came to [facility] 05/19/18 with abdominal bloating and difficulty breathing due to his rapid reaccumulation of ascites. He has a MELD score of 40, increased from 38 at admission. His coagulation is affected with an INR >2, and he has thrombocytopenia. He and his have been informed of his poor prognosis and he is realistic. Lab Values: Abnormal Lab Results 05/26/18 05/26/18 05/26/18 07:42 07:42 07:42 WBC 17.2 H RBC 2.66 L Hgb 9.6 L Hct 28 L MCV 106 H MCH 36 H MCHC 34 RDW 19 H Plt Count 78 L MPV 9.5 Neut % (Auto) 88.4 Lymph % (Auto) 3.9 [place] % (Auto) 6.9 Eos % (Auto) 0 Baso % (Auto) 0.8 Absolute Neuts (auto) 15.2 H Absolute Lymphs (auto) 0.7 L Absolute Monos (auto) 1.2 H Absolute Eos (auto) 0 Absolute Basos (auto) 0.1 Absolute Nucleated RBC 0 Nucleated RBC % 0 Sodium 134 L Potassium 4.4 Chloride 108 Carbon Dioxide 15 L Anion Gap 11 BUN 66 H Creatinine 3.25 H Est GFR ( Amer) 24.4 Est GFR (Non-Af Amer) 20.1 BUN/Creatinine Ratio 20.3 H Glucose 182 H Calcium 8.7 Total Bilirubin 22.80 H* AST 39 ALT 12 Alkaline Phosphatase 122 H Ammonia 106 H Total Protein 4.9 L Albumin 3.4 Globulin 1.5 L Albumin/Globulin Ratio 2.3 Laboratory Last Values WBC 17.2 10^3/ul (3.5-10.8) H 05/26/18 07:42 RBC 2.66 10^6/ul (4.00-5.40) L 05/26/18 07:42 Hgb 9.6 g/dl (14.0-18.0) L 05/26/18 07:42 Hct 28 % (42-52) L 05/26/18 07:42 MCV 106 fL (80-94) H 05/26/18 07:42 MCH 36 pg (27-31) H 05/26/18 07:42 MCHC 34 g/dl (31-36) 05/26/18 07:42 RDW 19 % (10.5-15) H 05/26/18 07:42 Plt Count 78 10^3/ul (150-450) L 05/26/18 07:42 MPV 9.5 fL (7.4-10.4) 05/26/18 07:42 Neut % (Auto) 88.4 % 05/26/18 07:42 Lymph % (Auto) 3.9 % 05/26/18 07:42 Ceiba % (Auto) 6.9 % 05/26/18 07:42 Eos % (Auto) 0 % 05/26/18 07:42 Baso % (Auto) 0.8 % 05/26/18 07:42 Absolute Neuts (auto) 15.2 10^3/ul (1.5-7.7) H 05/26/18 07:42 Absolute Lymphs (auto) 0.7 10^3/ul (1.0-4.8) L 05/26/18 07:42 Absolute Monos (auto) 1.2 10^3/ul (0-0.8) H 05/26/18 07:42 Absolute Eos (auto) 0 10^3/ul (0-0.6) 05/26/18 07:42 Absolute Basos (auto) 0.1 10^3/ul (0-0.2) 05/26/18 07:42 Absolute Nucleated RBC 0 10^3/ul 05/26/18 07:42 Nucleated RBC % 0 05/26/18 07:42 Polychromasia 1+ 05/22/18 05:10 Hypochromasia 1+ 05/24/18 07:32 Anisocytosis 1+ 05/22/18 05:10 Macrocytosis 1+ 05/25/18 09:06 Target Cells 1+ 05/25/18 09:06 Davina Cells 2+ 05/23/18 04:25 Schistocytes 1+ 05/23/18 04:25 Hem Pathologist Commnt 05/23/18 04:25 INR (Anticoag Therapy) 2.59 (0.77-1.02) H 05/25/18 09:06 APTT 42.9 seconds (26.0-36.3) H 05/19/18 10:35 Sodium 134 mmol/L (135-145) L 05/26/18 07:42 Potassium 4.4 mmol/L (3.5-5.0) 05/26/18 07:42 Chloride 108 mmol/L (101-111) 05/26/18 07:42 Carbon Dioxide 15 mmol/L (22-32) L 05/26/18 07:42 Anion Gap 11 mmol/L (2-11) 05/26/18 07:42 BUN 66 mg/dL (6-24) H 05/26/18 07:42 Creatinine 3.25 mg/dL (0.67-1.17) H 05/26/18 07:42 Est GFR ( Amer) 24.4 (>60) 05/26/18 07:42 Est GFR (Non-Af Amer) 20.1 (>60) 05/26/18 07:42 BUN/Creatinine Ratio 20.3 (8-20) H 05/26/18 07:42 Glucose 182 mg/dL (70-100) H 05/26/18 07:42 Serum Osmolality 282 mOsm/kg (275-295) 05/20/18 13:54 Lactic Acid 1.7 mmol/L (0.5-2.0) 05/19/18 10:35 Calcium 8.7 mg/dL (8.6-10.3) 05/26/18 07:42 Magnesium 2.5 mg/dL (1.9-2.7) 05/19/18 10:35 Total Bilirubin 22.80 mg/dL (0.2-1.0) H* 05/26/18 07:42 AST 39 U/L (13-39) 05/26/18 07:42 ALT 12 U/L (7-52) 05/26/18 07:42 Alkaline Phosphatase 122 U/L (34-104) H 05/26/18 07:42 Ammonia 106 mcmol/L (16-53) H 05/26/18 07:42 Total Creatine Kinase 16 U/L (10-223) 05/19/18 10:35 Troponin I 0.01 ng/mL (<0.04) 05/19/18 10:35 C-Reactive Protein 119.21 mg/L (<8.01) H 05/19/18 10:35 B-Natriuretic Peptide 88 pg/mL (<=100) 05/19/18 10:35 Total Protein 4.9 g/dL (6.4-8.9) L 05/26/18 07:42 Albumin 3.4 g/dL (3.2-5.2) 05/26/18 07:42 Globulin 1.5 g/dL (2-4) L 05/26/18 07:42 Albumin/Globulin Ratio 2.3 (1-3) 05/26/18 07:42 Prealbumin 4 mg/dL (18-38) L 05/19/18 10:35 Amylase 24 U/L (29-103) L 05/19/18 10:35 Lipase 63 U/L (11.0-82.0) 05/19/18 10:35 Urine Color Tawana 05/19/18 13:35 Urine Appearance Cloudy 05/19/18 13:35 Urine pH 5.0 (5-9) 05/19/18 13:35 Ur Specific [place] 1.014 (1.010-1.030) 05/19/18 13:35 Urine Protein Negative (Negative) 05/19/18 13:35 Urine Ketones Negative (Negative) 05/19/18 13:35 Urine Blood Negative (Negative) 05/19/18 13:35 Urine Nitrate Negative (Negative) 05/19/18 13:35 Urine Bilirubin 2+ (Negative) A 05/19/18 13:35 Urine Urobilinogen Positive (Negative) A 05/19/18 13:35 Ur Leukocyte Esterase Negative (Negative) 05/19/18 13:35 Urine Osmolality 408 mOsm/kg (100-1150) 05/20/18 13:09 Ur Creatinine Concen 120.91 mg/dL 05/19/18 13:35 U Sodium Concentration < 18 mmol/L 05/22/18 19:30 Urine Potassium 21.8 mmol/L 05/22/18 19:30 Urine Glucose Negative (Negative) 05/19/18 13:35 Fluid Source Peritoneal 05/19/18 16:30 Fluid Volume 9 mL 05/19/18 16:30 Fluid Color Yellow 05/19/18 16:30 Fluid Appearance Clear 05/19/18 16:30 Fluid WBC 94 /mcL (0-982302) 05/19/18 16:30 Fluid RBC 325 /mcL 05/19/18 16:30 Fluid Tot Cell Count 100 05/19/18 16:30 Fluid Neutrophils 21 % 05/19/18 16:30 Fluid Lymphocytes 18 % 05/19/18 16:30 Fluid Monocytes 61 % 05/19/18 16:30 Fluid Other Cells 10 05/19/18 16:30 Fluid Cell Count Rvw By 05/19/18 16:30 Fluid Total Protein 0.5 g/dL 05/19/18 16:30 Hepatitis A IgM Ab Nonreactive (Nonreactive) 05/19/18 17:41 Hep Bs Antigen Nonreactive (Nonreactive) 05/19/18 17:41 Hep B Core IgM Ab Nonreactive (Nonreactive) 05/19/18 17:41 Hepatitis C Antibody Nonreactive (Nonreactive) 05/19/18 17:41 Hepatitis C Ab Index 0.1 Index 05/19/18 17:41 Influenza A (Rapid) Negative (Negative) 05/19/18 23:25 Influenza B (Rapid) Negative (Negative) 05/19/18 23:25 - Objective Active Medications: Octreotide Acetate 500 mcg/ (Sodium Chloride) 101 mls @ 10.1 mls/hr IVPB Q10H [facility] Last Admin: 05/26/18 14:18 Dose: 10.1 mls/hr Albumin Human (Albumin Human 25%*) 25 gm in 100 mls @ 100 mls/hr IV 0900,2100 [facility] Last Admin: 05/26/18 09:14 Dose: 100 mls/hr Phytonadione 10 mg/ Sodium (Chloride) 51 mls @ 102 mls/hr IV Q24H [facility]; Protocol Stop: 05/27/18 11:29 Last Admin: 05/26/18 11:25 Dose: 102 mls/hr Lactulose (Lactulose*) 15 ml PO TID [facility] Last Admin: 05/26/18 14:18 Dose: 15 ml Midodrine (Midodrine (Nf)) 15 mg PO TID [facility]; Protocol Last Admin: 05/26/18 14:18 Dose: 15 mg Ondansetron HCl (Zofran Inj*) 4 mg IV Q6H PRN PRN Reason: NAUSEA Pantoprazole Sodium (Protonix Tab (Nf)) 40 mg PO DAILY [facility] Last Admin: 05/26/18 09:22 Dose: 40 mg Prednisolone Sodium Phosphate (Prednisolone 3 Mg/Ml 5 Ml Oral.Solution*) 40 mg PO DAILY [facility]; Protocol Stop: 06/01/18 10:59 Last Admin: 05/26/18 09:25 Dose: 40 mg Sodium Bicarbonate (Sodium Bicarbonate (Antacid)*) 650 mg PO AC [facility] Last Admin: 05/26/18 11:23 Dose: 650 mg Spironolactone (Aldactone Tab*) 150 mg PO DAILY [facility] Last Admin: 05/26/18 09:22 Dose: 150 mg Vital Signs: Vital Signs: Temp Pulse Resp BP Pulse Ox 97.6 F 59 16 134/66 97 05/26/18 11:39 05/26/18 11:39 05/26/18 11:39 05/26/18 11:39 05/26/18 11:39 Patient Weight: Weight 190 lb 12.8 oz Intake and Output: Intake & Output 05/24/18 05/25/18 05/26/18 05/27/18 06:59 06:59 06:59 06:59 Intake Total 1219.2 2260 1490 240 Output Total 1375 1200 1025 Balance -155.8 1060 465 240 Weight 188 lb 3.2 oz 186 lb 3.2 oz 190 lb 12.8 oz Intake: IV Fluids 310 430 30 Albumin 25% 200 10 NS (0.9%) 110 Vitamin K 10 abx- CEFTRIAXONE 10 all fluids 430 IVPB 107 400 400 Albumin 25% 200 200 NS (0.9%) 107 Vitamin K 100 100 abx- CEFTRIAXONE 100 100 Medicated IV 212.2 110 100 GEN - Octreotide 212.2 110 100 Oral 480 1320 960 240 Albumin 110 Output: Urine 1275 1200 1025 [place] 100 Other: Estimated Void Medium Date of Last Bowel 05/23/2018 Movement # Bowel Movements 1 0 Estimated Stool Amount Small Medium # Voids 1 ADLs: Meal Record Start: 05/19/18 12: 49 Freq: Status: Inactive Protocol: Created 05/19/18 12:49 System (Rec: 05/19/18 12:49 System ICU-C07) ADLs: Meal Record Start: 05/19/18 13: 23 Freq: ,, Status: Active Protocol: Created 05/19/18 13:23 [id number] (Rec: 05/19/18 13:23 [id number] ICU-C07) Document 05/20/18 09:00 [id number] (Rec: 05/20/18 10:29 [id number] ICU-C06) Document 05/20/18 13:00 [id number] (Rec: 05/20/18 15:20 [id number] ICU-C06) Document 05/20/18 18:00 DCO0192 (Rec: 05/20/18 22:58 [id number] ICU-C07) Document 05/21/18 09:00 UXB0325 (Rec: 05/21/18 09:37 [id number] ICU-M25) Document 05/21/18 13:00 [id number] (Rec: 05/21/18 17:50 [id number] ICU-C06) Document 05/21/18 18:00 LKE5287 (Rec: 05/21/18 18:37 [id number] ICU-C06) Document 05/22/18 09:00 UHR7943 (Rec: 05/22/18 12:43 [id number] ICU-C06) Document 05/22/18 13:00 BSV1768 (Rec: 05/22/18 15:45 [id number] ICU-C06) Document 05/22/18 20:00 BPG5529 (Rec: 05/22/18 20:13 MPE6609 ICU-C06) Document 05/23/18 09:00 UMM9005 (Rec: 05/23/18 10:07 VXA3265 ICU-C06) Document 05/23/18 17:37 IXQ8130 (Rec: 05/23/18 17:38 SSZ1176 ICU-C06) Document 05/24/18 09:00 AXE4532 (Rec: 05/24/18 10:18 EMB7829 MED-C11) Document 05/24/18 13:00 DPG1011 (Rec: 05/24/18 14:23 TPY5631 MED-C11) Document 05/24/18 18:00 XWK1337 (Rec: 05/24/18 18:50 DRT3232 MED-M18) Document 05/25/18 09:00 WWN6678 (Rec: 05/25/18 10:28 KWM1783 MED-C09) Document 05/25/18 13:00 VSX1072 (Rec: 05/25/18 14:32 YKD3708 MED-C09) Document 05/26/18 09:00 BNE7607 (Rec: 05/26/18 09:25 RLW4933 MED-C09) Intake and Output Start: 05/19/18 09: 23 Freq: Status: Active Protocol: Created 05/19/18 09:23 System (Rec: 05/19/18 09:23 System ED-C24) Intake and Output Start: 05/19/18 12: 49 Freq: DAILY@0600,1400,2200 Status: Inactive Protocol: Created 05/19/18 12:49 System (Rec: 05/19/18 12:49 System ICU-C07) Intake and Output Start: 05/19/18 13: 23 Freq: 06,14,2200 Status: Active Protocol: Created 05/19/18 13:23 [id number] (Rec: 05/19/18 13:23 PAH2486 ICU-C07) Document 05/19/18 14:00 MXP9269 (Rec: 05/19/18 16:23 GFQ8930 ICU-C07) Document 05/19/18 16:00 SCQ8823 (Rec: 05/19/18 17:12 VVP3891 ICU-C07) Document 05/19/18 17:00 BDM6519 (Rec: 05/19/18 18:05 LQQ0004 ICU-C07) Document 05/19/18 18:00 LEI6909 (Rec: 05/19/18 18:08 PMI1485 ICU-C07) Document 05/19/18 22:00 IVS8586 (Rec: 05/19/18 22:53 MZI3175 ICU-C06) Document 05/20/18 00:00 UQN9275 (Rec: 05/20/18 00:33 PDO6714 ICU-C06) Document 05/20/18 03:00 FDZ3058 (Rec: 05/20/18 03:27 VTR3636 ICU-C06) Document 05/20/18 05:00 DPR8186 (Rec: 05/20/18 05:09 EMP8296 ICU-C06) Document 05/20/18 07:53 ZCL0298 (Rec: 05/20/18 07:53 VDM7881 ICU-C06) Document 05/20/18 09:00 ZFZ0855 (Rec: 05/20/18 10:29 GIU7213 ICU-C06) Document 05/20/18 14:00 TJF4335 (Rec: 05/20/18 15:14 BPM4401 ICU-C06) Document 05/20/18 15:00 XLS8391 (Rec: 05/20/18 15:14 LAF7850 ICU-C06) Document 05/20/18 17:00 VLF7601 (Rec: 05/20/18 17:03 KJQ3350 ICU-C12) Document 05/20/18 20:00 ZQO9393 (Rec: 05/20/18 20:43 [id number] ICU-C07) Document 05/20/18 21:00 NTO2638 (Rec: 05/20/18 22:35 CUB0432 ICU-C07) Document 05/20/18 22:00 LFB7764 (Rec: 05/20/18 23:10 COM1126 ICU-C07) Document 05/20/18 23:00 JMD9633 (Rec: 05/20/18 23:11 PKH7258 ICU-C07) Document 05/21/18 00:00 JIA5037 (Rec: 05/21/18 00:25 BER5623 ICU-M35) Document 05/21/18 01:00 UGX7940 (Rec: 05/21/18 01:46 JPF2555 ICU-C07) Document 05/21/18 02:00 HCD1713 (Rec: 05/21/18 02:25 ZXL7866 ICU-C07) Document 05/21/18 03:00 JNM9832 (Rec: 05/21/18 03:47 AQW3710 ICU-C07) Document 05/21/18 04:00 UFO6348 (Rec: 05/21/18 04:07 WXY4911 ICU-C14) Document 05/21/18 05:00 HPO3300 (Rec: 05/21/18 05:02 ITL1352 ICU-C07) Document 05/21/18 06:00 BKK9105 (Rec: 05/21/18 06:02 AEE5627 ICU-C07) Document 05/21/18 08:00 EBR2184 (Rec: 05/21/18 08:16 LPP6066 ICU-M35) Document 05/21/18 10:00 OAJ5802 (Rec: 05/21/18 10:01 OMS0863 ICU-C18) Document 05/21/18 12:00 DAN4638 (Rec: 05/21/18 12:25 JKQ3111 ICU-C06) Document 05/21/18 13:00 JDM9336 (Rec: 05/21/18 14:44 DNZ5899 ICU-C06) Document 05/21/18 14:00 KIM9486 (Rec: 05/21/18 14:05 IKU3536 ICU-L03) Document 05/21/18 17:15 ITV6880 (Rec: 05/21/18 17:16 KTY4106 ICU-C06) Document 05/21/18 18:00 HHX4360 (Rec: 05/21/18 18:37 SVT7323 ICU-C06) Document 05/21/18 19:30 YWI3495 (Rec: 05/21/18 20:10 PJN4872 ICU-C06) Document 05/21/18 21:10 UYZ1352 (Rec: 05/21/18 21:10 TIQ5472 ICU-C06) Document 05/21/18 21:57 KVI9660 (Rec: 05/21/18 21:57 JAV7826 ICU-C06) Document 05/22/18 00:57 ALW3969 (Rec: 05/22/18 00:58 VHV7242 ICU-C06) Document 05/22/18 06:00 JGB5478 (Rec: 05/22/18 06:15 AAP9998 ICU-C06) Document 05/22/18 10:20 HQZ7904 (Rec: 05/22/18 16:36 OYZ0517 ICU-C06) Document 05/22/18 14:00 WFX7139 (Rec: 05/22/18 16:35 OLU7655 ICU-C06) Document 05/22/18 19:36 JYK8924 (Rec: 05/22/18 19:37 UTG8825 ICU-M35) Document 05/22/18 22:00 BBZ3581 (Rec: 05/22/18 22:09 ZCG5131 ICU-C06) Document 05/22/18 23:45 TSF2365 (Rec: 05/23/18 00:35 CHW4209 ICU-C06) Document 05/23/18 03:22 OZK6973 (Rec: 05/23/18 03:22 EAM0707 ICU-C06) Document 05/23/18 04:56 XZA8885 (Rec: 05/23/18 04:56 PZR4577 ICU-C07) Document 05/23/18 06:00 NCD8265 (Rec: 05/23/18 06:16 LVE2648 ICU-C25) Document 05/23/18 07:17 SHA6014 (Rec: 05/23/18 07:17 MNV2739 ICU-C20) Document 05/23/18 11:17 KFD5734 (Rec: 05/23/18 11:18 HGJ4571 ICU-C06) Document 05/23/18 16:42 GXT9830 (Rec: 05/23/18 16:43 EDH6739 ICU-C12) Document 05/23/18 22:00 QVS6747 (Rec: 05/23/18 23:35 HPD6457 MED-C02) Document 05/24/18 01:55 MJH4399 (Rec: 05/24/18 01:56 KBY0685 MED-C16) Document 05/24/18 06:00 ATT8911 (Rec: 05/24/18 06:31 QNK1568 MED-C02) Document 05/24/18 14:00 NGZ5477 (Rec: 05/24/18 14:42 NLA4374 MED-C09) Document 05/24/18 18:50 NZI5037 (Rec: 05/24/18 18:51 SNJ0758 [facility]-M18) Document 05/24/18 20:42 AWU3265 (Rec: 05/24/18 20:43 DHA3218 [facility]-C09) Document 05/24/18 22:00 MHU3455 (Rec: 05/24/18 22:00 KDL6490 [facility]-C09) Document 05/25/18 05:40 ZKU1402 (Rec: 05/25/18 05:41 MGO4662 [facility]-C02) Document 05/25/18 14:00 BIX3932 (Rec: 05/25/18 14:30 SZH1915 [facility]-C09) Document 05/25/18 19:49 ZPK8740 (Rec: 05/25/18 19:50 CJD2135 [facility]-C09) Document 05/25/18 22:00 TFQ7663 (Rec: 05/25/18 23:05 NAW9612 [facility]-C09) Document 05/26/18 02:28 JCO0220 (Rec: 05/26/18 02:28 EJW3245 [facility]-C09) Document 05/26/18 14:00 DJT7444 (Rec: 05/26/18 14:05 MBL5459 MED-C09) General Impression: Very jaundiced man lying in bed, with protruberant abdomen. Sleeping but easily aroused. Head: Symmetrical Eyes: PERRLA - icteric sclerae Ears/Nose/Mouth/Throat: - - dry oral mucosa Neck: NL Appearance and Movements; NL JVP, Trachea Midline Cardiovascular: NL Sounds; No Murmurs; No JVD, RRR, No Edema Respiratory: Symmetrical Chest Expansion and Respiratory Effort Abdominal: - - abdomen, liver edge palpable 4 FB below RCM Extremities: No Edema, No Clubbing, Cyanosis Neurological: Alert and Oriented x 3, NL Sensation, - - Occasional confusion Other Findings: No asterixis - Assessment Assessment: This patient has severe hepatic failure, with certain cirrhosis underlying his coagulopathy, thrombocytopenia, and probably his renal compromise. He may have a component of alcoholic hepatitis, but as his MELD score has increased during this hospital stay, he is unlikely to recover any significant hepatic synthetic capacity. He currently has a 3 month mortality of around 90%. When he had 6.5 L ascites removed through paracentesis, his creatinine bounced from 2 to over 3, so fluid removal will have to be done judiciously, and kept to less than 4 L at a time, per Dr. Mcgee. The patient was willing to discuss his poor prognosis and acknowledge that he has end-stage disease. He has no other symptoms requiring palliative intervention other than his abdominal distention. He complete a MOLST specifying DNR/DNI/CC only, and his participated in these decisions. The patient is appropriate for hospice services and could be admitted to [facility] as soon as tomorrow. Thank you for the consultation. - Plan Consult Plan (MU): Hospice - Time On Unit Date of Evaluation: 05/26/18 Hospice Consult Time in: 13:00 Hospice Consult Time Out: 14:30 Hospice Consult Time Total: 90 > 50% of Time Spend In Counseling or Coordinating Care: Yes
--- NOTE | 2018-05-26 15:58 | PN ---
Progress Note - Progress Note Date of Service: 05/26/18 Note: pt seen, examined, and long discussion with MELD has worsened; up to 40 now; still with sx from ascties; 97.5, 125/73 jaundiced tense abd with ascites MELD 40, INR 2.59, bili 22.8, Cr 3.25 VERY poor prognoisis, extremely high 3 month mortality agree with Palliative Care will follow Yaakov Mcgee MD
--- NOTE | 2018-05-26 16:59 | PN ---
Subjective Date of Service: 05/26/18 Interval History: Patient seen and examined. States he is progressing with his SOB today and finding it more difficult to ambulate. Abdominal girth increasing, jaundice increasing, denies chest pain, no abdominal pain, no fevers. Discussed palliative tap today and patient is amendable. Objective Active Medications: Octreotide Acetate 500 mcg/ (Sodium Chloride) 101 mls @ 10.1 mls/hr IVPB Q10H [facility] Last Admin: 05/26/18 14:18 Dose: 10.1 mls/hr Albumin Human (Albumin Human 25%*) 25 gm in 100 mls @ 100 mls/hr IV 0900,2100 [facility] Last Admin: 05/26/18 09:14 Dose: 100 mls/hr Phytonadione 10 mg/ Sodium (Chloride) 51 mls @ 102 mls/hr IV Q24H [facility]; Protocol Stop: 05/27/18 11:29 Last Admin: 05/26/18 11:25 Dose: 102 mls/hr Lactulose (Lactulose*) 15 ml PO TID [facility] Last Admin: 05/26/18 14:18 Dose: 15 ml Midodrine (Midodrine (Nf)) 15 mg PO TID [facility]; Protocol Last Admin: 05/26/18 14:18 Dose: 15 mg Ondansetron HCl (Zofran Inj*) 4 mg IV Q6H PRN PRN Reason: NAUSEA Pantoprazole Sodium (Protonix Tab (Nf)) 40 mg PO DAILY [facility] Last Admin: 05/26/18 09:22 Dose: 40 mg Prednisolone Sodium Phosphate (Prednisolone 3 Mg/Ml 5 Ml Oral.Solution*) 40 mg PO DAILY [facility]; Protocol Stop: 06/01/18 10:59 Last Admin: 05/26/18 09:25 Dose: 40 mg Sodium Bicarbonate (Sodium Bicarbonate (Antacid)*) 650 mg PO AC [facility] Last Admin: 05/26/18 11:23 Dose: 650 mg Spironolactone (Aldactone Tab*) 150 mg PO DAILY [facility] Last Admin: 05/26/18 09:22 Dose: 150 mg Vital Signs - 8 hr 05/26/18 05/26/18 05/26/18 09:22 09:48 10:45 Temperature 97.4 F 97.3 F 97.7 F Pulse Rate 76 54 55 Respiratory 19 18 16 Rate Blood Pressure 109/68 117/68 112/71 (mmHg) O2 Sat by Pulse 99 99 99 Oximetry 05/26/18 05/26/18 11:39 15:27 Temperature 97.6 F 97.5 F Pulse Rate 59 66 Respiratory 16 18 Rate Blood Pressure 134/66 129/73 (mmHg) O2 Sat by Pulse 97 99 Oximetry Oxygen Devices in Use Now: None Appearance: alert, NAD, ill-appearing Eyes: PERRLA - severely icteric sclerae Ears/Nose/Mouth/Throat: NL Teeth, Lips, Gums, Mucous Membranes Moist Neck: NL Appearance and Movements; NL JVP, Trachea Midline Respiratory: Symmetrical Chest Expansion and Respiratory Effort - crackles at bases Cardiovascular: NL Sounds; No Murmurs; No JVD, RRR, No Edema Abdominal: - - distended, firm, larger than yesterday's exam Extremities: No Edema Skin: - - severe jaundice, dry skin Neurological: Alert and Oriented x 3, - - general deconditioning Nutrition: Taking PO's Result Diagrams: 05/26/18 07:42 05/26/18 07:42 Microbiology and Other Data: . Diagnostic Imaging: Patient Name: JEAN YODER Medical Record#: [id number] Ordering Physician: Amada Lozano NP Acct.#: [id number] : 1965 Age: 53 Sex: M Location: [address] [place] [address] - MEDICAL Exam Date: 05/24/18 1013 ADM Status: ADM IN Order Information: GALL BLADDER Accession Number: [id number] CPT: 50509 INDICATION: Evaluate for cholecystitis. COMPARISON: Comparison is made with a prior study from May 19, 2018. TECHNIQUE: Multiple real-time images of the right upper quadrant were obtained. FINDINGS: There is sludge present within the gallbladder. No gallstones are seen. The gallbladder was thickened possibly due to the surrounding ascites and unchanged from the prior study. No positive sonographic Benjamin sign was present. No intra or extrahepatic ductal distention is present. The common bile duct was not well visualized. The liver is enlarged with a mildly nodular contour suggesting the possibility of cirrhosis. No focal abnormality is seen. The pancreas is obscured by overlying bowel gas. The right kidney is normal in size without evidence for hydronephrosis. There is a moderate amount of ascites. IMPRESSION: 1. ASCITES. 2. SLUDGE IN GALLBLADDER ANDWALL THICKENING UNCHANGED. THE WALL THICKENING IS LIKELY DUE TO ASCITES. 3. HEPATOMEGALY AND MILDLY NODULAR CONTOUR RAISING THE POSSIBILITY OF CIRRHOSIS. Assess/Plan/Problems-Billing Assessment: This is a 53 year old male with history of ETOH cirrhosis that presented to the ER with abdominal pain and distention 2/2 ascites, currently in decompensated liver failure, hepatorenal syndrome. With MELD increased to 40. - Patient Problems (1) Alcoholic cirrhosis of liver with ascites Code(s): K70.31 - ALCOHOLIC CIRRHOSIS OF LIVER WITH ASCITES SNOMED Code(s): 064281114 Comment: - Maxed on MOA therapy, creat and bili remain critical - Discussed with Dr. Mcgee this am who will discuss goals of care with patient today - Palliative consult appreciated - Requested paracentesis today for comfort - MELD at 40, prognosis grave - Supportive care (2) Encephalopathy acute Code(s): G93.40 - ENCEPHALOPATHY, UNSPECIFIED SNOMED Code(s): 14243315 Comment: - Currently appropriate but he may be having intermittent forgetfulness - Continue lactulose, ammonia continues to rise (3) Acute renal failure Comment: - Creatinine 3.25 - continue midodrine and bicarb - Supportive care, no indication for dialysis - UOP remains adequate (4) Hyponatremia Code(s): E87.1 - HYPO-OSMOLALITY AND HYPONATREMIA SNOMED Code(s): 06613584 Comment: - Sodium 134 - Continue low sodium diet (5) Leukocytosis Code(s): D72.829 - ELEVATED WHITE BLOOD CELL COUNT, UNSPECIFIED SNOMED Code(s) : 395046044 Comment: - Remains afebrile - WBC 17.2 today - Initiated prednisone yesterday (6) GI bleeding Code(s): K92.2 - GASTROINTESTINAL HEMORRHAGE, UNSPECIFIED SNOMED Code(s): 00070135 Comment: - 2/2 portal hypertensive gastropathy - Continue PPI - H&H stable (7) Alcohol abuse Code(s): F10.10 - ALCOHOL ABUSE, UNCOMPLICATED SNOMED Code(s): 06873666 Comment: - Last drink 04/22/2018 - Not a transplant candidate at [place] 2/2 recent ETOH use - No s/s of withdrawal (8) Hyperbilirubinemia Code(s): E80.6 - OTHER DISORDERS OF BILIRUBIN METABOLISM SNOMED Code(s): 67393221 Comment: - Bili remains critically elevated at 22.8 last two days - Physically jaundiced - No stones on gallbladder US - Supportive care (9) DVT prophylaxis Code(s): XAT7189 - SNOMED Code(s): 512957554 Comment: - High risk for bleeding, SCDs only (10) Full code status Code(s): Z78.9 - OTHER SPECIFIED HEALTH STATUS SNOMED Code(s): 924010114 Comment: - After discussing with Dr. Rey today, DNR was elected by patient - Patient is Hospice eligible, please see note by Dr. Rey Status and Disposition: Inpatient, likely discharge to the Hospice Residence but patient is still processing these developments and his poor prognosis. Will discuss again with patient tomorrow, but bed is available at the Residence tomorrow. Will summer counselor and follow patient's wishes.
--- NOTE | 2018-05-26 21:19 | BRIEFOPN ---
Brief Operative Note - Surgery Procedures: OPERATIVE REPORT PRE-OP: Ascites, liver failure POST-OP:Same PROCEDURE:Paracentesis, 3.5 liters of bilious fluid drained. SURGEON: MD Feng ANESTHESIA:Local ASST:None IVF:none EBL:min SPECIMEN:none DRAIN: none WOUND CLASS:One COMPLICATIONS: none TO PACU
[2018-05-27] MEDS: Octreotide Acetate* 500 MCG in NS 0.9% 100 ML* 100 ML IVPB SCH ×3 (01:34→21:58)
[2018-05-27] MEDS: Spironolactone TAB* 25 MG PO SCH (09:01)
[2018-05-27] MEDS: Sodium Bicarbonate (ANTACID)* 650 MG TAB PO SCH ×3 (09:01→17:27)
[2018-05-27] MEDS: Lactulose* 15 ML UDC PO SCH ×3 (09:01→21:36)
[2018-05-27] MEDS: CMC: Pantoprazole TAB (NF) 40 MG TAB PO SCH (09:01)
[2018-05-27] MEDS: PrednisoLONE 3 MG/ML ORAL.SOLU 15 MG/5 ML ORAL.SOLN PO SCH (09:01)
[2018-05-27] MEDS: CMCS:Midodrine (NF) 5 MG TAB PO SCH ×3 (09:01→21:36)
[2018-05-27] MEDS: Albumin Human 25%* 25 GM/100 ML BTL IV SCH ×2 (09:20→21:25)
[2018-05-27] MEDS: Phytonadione 10 mg in 50 mL NS over 30 min IV SCH (12:10)
--- NOTE | 2018-05-27 15:57 | OP ---
DATE OF OPERATION: 05/26/18 - ROOM #417 DATE OF : 67 SURGEON: Tony Toney MD NAIL TECHNICIAN TEACHER: None. ANESTHESIA: 1% lidocaine with epinephrine. PRE-OP DIAGNOSIS: Alcoholic end-stage liver disease with ascites. POST-OP DIAGNOSIS: Alcoholic end-stage liver disease with ascites. OPERATIVE PROCEDURE: Paracentesis of 3.5 L of bilious fluid. BRIEF HISTORY: Mr. Micah Oakes is a 53-year-old gentleman with end-stage liver disease secondary to alcohol with cirrhosis and ascites. He has had multiple therapeutic paracentesis for symptom control. He has now been requested by his primary service that a paracentesis be performed. The procedure was discussed with the patient and the risks, but not limited to, bleeding, infection, discomfort, bowel injury causing peritonitis and sepsis were all discussed. ESTIMATED BLOOD LOSS: Minimal. SPECIMENS: None. COMPLICATIONS: None. WOUND CLASSIFICATION: I. DESCRIPTION OF PROCEDURE: The patient was placed in a supine position. The abdomen was marked with indelible ink. Preoperative antibiotics were not given. A time-out verification was completed. Bedside ultrasound was used both the left and the right and appeared that there was a larger fluid pocket on the right mid and lower abdomen. This area was then prepped and draped in usual sterile fashion. A time-out verification was completed. A 1% lidocaine was infiltrated through the full-thickness abdominal wall and a small incision was made with an 11-blade knife and the 8-Ukrainian catheter over the needle was passed intraabdominally into the pocket of the ascites fluid and we drained approximately 3.5 L using the suction bottles of a clear viscous bilious fluid. At about this level of drainage, there was no further ascites easily drainable and the catheter was removed and firm pressure was held and hemostasis was assured. A dry sterile dressing was applied. The patient tolerated the procedure well. [id number]/[facility] #: [id number] [facility]
--- NOTE | 2018-05-27 17:24 | PN ---
Subjective Date of Service: 05/27/18 Interval History: Patient seen and examined. Extensive discussion regarding HospiCare referral. Patient seems reluctant to elect hospice benefits at the Residence and needed re -orientation about seeing Dr. Rey yesterday (initially stated he did not see anyone from Hospice yesterday). He states his breathing is improved since yesterday's tap, denies pain, does have fatigue and difficulty ambulating. States he still doesn't know "what the plan is" and "I'm not ready to leave so soon". Objective Active Medications: Octreotide Acetate 500 mcg/ (Sodium Chloride) 101 mls @ 10.1 mls/hr IVPB Q10H [facility] Last Admin: 05/27/18 09:01 Dose: 10.1 mls/hr Albumin Human (Albumin Human 25%*) 25 gm in 100 mls @ 100 mls/hr IV 0900,2100 [facility] Last Admin: 05/27/18 09:20 Dose: 100 mls/hr Lactulose (Lactulose*) 15 ml PO TID [facility] Last Admin: 05/27/18 13:33 Dose: 15 ml Midodrine (Midodrine (Nf)) 15 mg PO TID [facility]; Protocol Last Admin: 05/27/18 13:33 Dose: 15 mg Ondansetron HCl (Zofran Inj*) 4 mg IV Q6H PRN PRN Reason: NAUSEA Pantoprazole Sodium (Protonix Tab (Nf)) 40 mg PO DAILY [facility] Last Admin: 05/27/18 09:01 Dose: 40 mg Prednisolone Sodium Phosphate (Prednisolone 3 Mg/Ml 5 Ml Oral.Solution*) 40 mg PO DAILY [facility]; Protocol Stop: 06/01/18 10:59 Last Admin: 05/27/18 09:01 Dose: 40 mg Sodium Bicarbonate (Sodium Bicarbonate (Antacid)*) 650 mg PO AC [facility] Last Admin: 05/27/18 12:11 Dose: 650 mg Spironolactone (Aldactone Tab*) 150 mg PO DAILY [facility] Last Admin: 05/27/18 09:01 Dose: 150 mg Vital Signs - 8 hr 05/27/18 05/27/18 05/27/18 09:23 11:46 15:00 Temperature 97.4 F 97.8 F 97.8 F Pulse Rate 72 42 60 Respiratory 18 14 Rate Blood Pressure 124/84 131/73 123/68 (mmHg) O2 Sat by Pulse 98 100 98 Oximetry Oxygen Devices in Use Now: None Appearance: alert, jaundice, ill-appearing Eyes: PERRLA - icteric sclerae Ears/Nose/Mouth/Throat: NL Teeth, Lips, Gums, - - dry oral mucosa Neck: NL Appearance and Movements; NL JVP, Trachea Midline Respiratory: Symmetrical Chest Expansion and Respiratory Effort, Clear to Auscultation Cardiovascular: NL Sounds; No Murmurs; No JVD, RRR Abdominal: - - large, distended, firm, right paracentesis site leaking yellow fluid Extremities: No Edema, No Clubbing, Cyanosis Skin: - - dry, jaundiced Neurological: Alert and Oriented x 3, - Result Diagrams: 05/26/18 07:42 05/26/18 07:42 Microbiology and Other Data: . Diagnostic Imaging: Patient Name: JEAN YODER Medical Record#: [id number] Ordering Physician: Amada Lozano NP Acct.#: [id number] : 1965 Age: 53 Sex: M Location: [address] [place] [address] - MEDICAL Exam Date: 05/24/18 1013 ADM Status: ADM IN Order Information: US GALL BLADDER Accession Number: [id number] CPT: 23866 INDICATION: Evaluate for cholecystitis. COMPARISON: Comparison is made with a prior study from May 19, 2018. TECHNIQUE: Multiple real-time images of the right upper quadrant were obtained. FINDINGS: There is sludge present within the gallbladder. No gallstones are seen. The gallbladder was thickened possibly due to the surrounding ascites and unchanged from the prior study. No positive sonographic Benjamin sign was present. No intra or extrahepatic ductal distention is present. The common bile duct was not well visualized. The liver is enlarged with a mildly nodular contour suggesting the possibility of cirrhosis. No focal abnormality is seen. The pancreas is obscured by overlying bowel gas. The right kidney is normal in size without evidence for hydronephrosis. There is a moderate amount of ascites. IMPRESSION: 1. ASCITES. 2. SLUDGE IN GALLBLADDER ANDWALL THICKENING UNCHANGED. THE WALL THICKENING IS LIKELY DUE TO ASCITES. 3. HEPATOMEGALY AND MILDLY NODULAR CONTOUR RAISING THE POSSIBILITY OF CIRRHOSIS. Assess/Plan/Problems-Billing Assessment: This is a 53 year old male with history of ETOH cirrhosis that presented to the ER with abdominal pain and distention 2/2 ascites, currently in decompensated liver failure, hepatorenal syndrome. With MELD increased to 40. - Patient Problems (1) Alcoholic cirrhosis of liver with ascites Code(s): K70.31 - ALCOHOLIC CIRRHOSIS OF LIVER WITH ASCITES SNOMED Code(s): 742222862 Comment: - Maxed on MOA therapy, creat and bili remain critical, MELD=40 with >70% chance of mortality in 90 days - Per notes from Hospice and GI, it has been explained to the patient that he is on maximal therapy with no appreciable improvement - Extensive discussion again today with patient, patient seems more amenable to transfer to Hospice Residence when bed available - Continue palliative paracentesis; will request pigtail insertion tomorrow in anticipation of patient going to hospice to makes ascites drainage more comfortable for patient (2) Encephalopathy acute Code(s): G93.40 - ENCEPHALOPATHY, UNSPECIFIED SNOMED Code(s): 56278282 Comment: - Currently appropriate but he may be having intermittent forgetfulness - Continue lactulose, ammonia continues to rise (3) Acute renal failure Comment: - Creatinine 3.25 - continue midodrine and bicarb - Supportive care, no indication for dialysis - UOP remains adequate (4) Hyponatremia Code(s): E87.1 - HYPO-OSMOLALITY AND HYPONATREMIA SNOMED Code(s): 72998681 Comment: - Sodium 134 - Continue low sodium diet (5) Leukocytosis Code(s): D72.829 - ELEVATED WHITE BLOOD CELL COUNT, UNSPECIFIED SNOMED Code(s) : 266286621 Comment: - Remains afebrile - WBC 17.2 - Continue prednisone (6) GI bleeding Code(s): K92.2 - GASTROINTESTINAL HEMORRHAGE, UNSPECIFIED SNOMED Code(s): 61202707 Comment: - 2/2 portal hypertensive gastropathy - Continue PPI - H&H stable (7) Alcohol abuse Code(s): F10.10 - ALCOHOL ABUSE, UNCOMPLICATED SNOMED Code(s): 81163202 Comment: - Last drink 04/22/2018 - Not a transplant candidate at [place] 2/2 recent ETOH use - No s/s of withdrawal (8) Hyperbilirubinemia Code(s): E80.6 - OTHER DISORDERS OF BILIRUBIN METABOLISM SNOMED Code(s): 71340362 Comment: - Bili remains critically elevated at 22.8 - Physically jaundiced - No stones on gallbladder US - Supportive care (9) DVT prophylaxis Code(s): UDV5145 - SNOMED Code(s): 796041221 Comment: - High risk for bleeding, SCDs only (10) Full code status Code(s): Z78.9 - OTHER SPECIFIED HEALTH STATUS SNOMED Code(s): 096503777 Comment: - After discussing with Dr. Rey today, DNR was elected by patient - Patient is Hospice eligible, please see note by Dr. Rey Status and Disposition: Inpatient, anticipate transfer to Hospice Residence when bed available, may be tomorrow if bed is available and after pigtail inserted.
[2018-05-28] MEDS: Octreotide Acetate* 500 MCG in NS 0.9% 100 ML* 100 ML IVPB SCH ×2 (07:00→15:45)
[2018-05-28 09:48] LABS: ABS Basophils 0.3 10^3/ul (0-0.2); ABS Eosinophils 0 10^3/ul (0-0.6); ABS Lymphocytes 0.6 10^3/ul (1.0-4.8); ABS Monocytes 1.1 10^3/ul (0-0.8); ABS Neutrophils 17.6 10^3/ul (1.5-7.7); ABS Nucleated RBC 0 10^3/ul; Eosinophil % 0.1 %; Hematocrit 31 % (42-52); Hemoglobin 10.4 g/dl (14.0-18.0); Lymphocyte % 3.3 %; Mean Corpuscular HGB Conc 33 g/dl (31-36); Mean Corpuscular Hemoglobin 35 pg (27-31); Mean Corpuscular Volume 106 fL (80-94); Mean Platelet Volume 9.4 fL (7.4-10.4); Nucleated Red Blood Cells % 0.1; Platelet Count 80 10^3/ul (150-450); Red Blood Count 2.94 10^6/ul (4.00-5.40); Red Cell Distribution Width 20 % (10.5-15); White Blood Count 19.6 10^3/ul (3.5-10.8)
[2018-05-28 09:59] LABS: EGFR Non-African American 23.7 (>60)
[2018-05-28] MEDS: Lactulose* 15 ML UDC PO SCH ×3 (10:17→22:29)
[2018-05-28] MEDS: PrednisoLONE 3 MG/ML ORAL.SOLU 15 MG/5 ML ORAL.SOLN PO SCH (10:17)
[2018-05-28] MEDS: CMC: Pantoprazole TAB (NF) 40 MG TAB PO SCH (10:18)
[2018-05-28] MEDS: Spironolactone TAB* 25 MG PO SCH (10:18)
[2018-05-28] MEDS: CMCS:Midodrine (NF) 5 MG TAB PO SCH ×3 (10:19→22:29)
[2018-05-28] MEDS: Albumin Human 25%* 25 GM/100 ML BTL IV SCH (10:19)
[2018-05-28] MEDS: Sodium Bicarbonate (ANTACID)* 650 MG TAB PO SCH ×3 (10:59→16:58)
--- NOTE | 2018-05-28 14:04 | PN ---
Subjective Date of Service: 05/28/18 Interval History: Patient reports he "needs time to make a decision and feel that I am being rushed". Per case maker patient has not been willing to make a decision on placement. Pt states he will talk to his and make a decision by the morning. He states he understands he is very sick and was told he has "two weeks to live". He reports he feels emotionally ok with this. He does not think he wants to go to the Hospice facility and wants to be closer to home which is [place]. He reports some discomfort in his abdomen but states this is much better now that it is draining a little all the time. Objective Active Medications: Octreotide Acetate 500 mcg/ (Sodium Chloride) 101 mls @ 10.1 mls/hr IVPB Q10H [facility] Last Admin: 05/28/18 07:00 Dose: 10.1 mls/hr Albumin Human (Albumin Human 25%*) 25 gm in 100 mls @ 100 mls/hr IV 0900,2100 [facility] Last Admin: 05/28/18 10:19 Dose: 100 mls/hr Lactulose (Lactulose*) 15 ml PO TID [facility] Last Admin: 05/28/18 10:17 Dose: 15 ml Midodrine (Midodrine (Nf)) 15 mg PO TID [facility]; Protocol Last Admin: 05/28/18 10:19 Dose: 15 mg Ondansetron HCl (Zofran Inj*) 4 mg IV Q6H PRN PRN Reason: NAUSEA Pantoprazole Sodium (Protonix Tab (Nf)) 40 mg PO DAILY [facility] Last Admin: 05/28/18 10:18 Dose: 40 mg Prednisolone Sodium Phosphate (Prednisolone 3 Mg/Ml 5 Ml Oral.Solution*) 40 mg PO DAILY [facility]; Protocol Stop: 06/01/18 10:59 Last Admin: 05/28/18 10:17 Dose: 40 mg Sodium Bicarbonate (Sodium Bicarbonate (Antacid)*) 650 mg PO AC [facility] Last Admin: 05/28/18 12:05 Dose: 650 mg Spironolactone (Aldactone Tab*) 150 mg PO DAILY [facility] Last Admin: 05/28/18 10:18 Dose: 150 mg Vital Signs - 8 hr 05/28/18 05/28/18 05/28/18 08:01 11:00 11:19 Temperature 98.1 F 97.9 F 97.9 F Pulse Rate 76 71 70 Respiratory 16 20 Rate Blood Pressure 119/66 125/68 126/68 (mmHg) O2 Sat by Pulse 98 99 100 Oximetry Oxygen Devices in Use Now: None Appearance: Alert and oriented -- mild confusion noted Eyes: PERRLA, - - b/l scerla icterus Ears/Nose/Mouth/Throat: NL Teeth, Lips, Gums, Mucous Membranes Moist Neck: NL Appearance and Movements; NL JVP Respiratory: Symmetrical Chest Expansion and Respiratory Effort, Clear to Auscultation Cardiovascular: NL Sounds; No Murmurs; No JVD, RRR, - - trace b/l ankle Abdominal: - - distended, soft, nontender - Right later quad has ostomy bag drainiing straw colored fluid Skin: - - jaundice - genralized Neurological: Alert and Oriented x 3, NL Sensation, - Lines/Tubes/Other Access: Clean, Dry and Intact Peripheral IV Nutrition: Taking PO's Result Diagrams: 05/28/18 09:10 05/28/18 09:10 Microbiology and Other Data: . Diagnostic Imaging: Patient Name: JEAN YODER Medical Record#: [id number] Ordering Physician: Amada Lozano NP Acct.#: [id number] : 1965 Age: 53 Sex: M Location: [address] [place] [address] - MEDICAL Exam Date: 05/24/18 1013 ADM Status: ADM IN Order Information: GALL BLADDER Accession Number: [id number] CPT: 64111 INDICATION: Evaluate for cholecystitis. COMPARISON: Comparison is made with a prior study from May 19, 2018. TECHNIQUE: Multiple real-time images of the right upper quadrant were obtained. FINDINGS: There is sludge present within the gallbladder. No gallstones are seen. The gallbladder was thickened possibly due to the surrounding ascites and unchanged from the prior study. No positive sonographic Benjamin sign was present. No intra or extrahepatic ductal distention is present. The common bile duct was not well visualized. The liver is enlarged with a mildly nodular contour suggesting the possibility of cirrhosis. No focal abnormality is seen. The pancreas is obscured by overlying bowel gas. The right kidney is normal in size without evidence for hydronephrosis. There is a moderate amount of ascites. IMPRESSION: 1. ASCITES. 2. SLUDGE IN GALLBLADDER ANDWALL THICKENING UNCHANGED. THE WALL THICKENING IS LIKELY DUE TO ASCITES. 3. HEPATOMEGALY AND MILDLY NODULAR CONTOUR RAISING THE POSSIBILITY OF CIRRHOSIS. Assess/Plan/Problems-Billing Assessment: This is a 53 year old male with history of ETOH cirrhosis that presented to the ER with abdominal pain and distention 2/2 ascites, currently in decompensated liver failure, hepatorenal syndrome. With MELD increased to 40. - Patient Problems (1) Alcoholic cirrhosis of liver with ascites Comment: - Maxed on MOA therapy, creat and bili remain critical, MELD=40 with >70% chance of mortality in 90 days - Per notes from Hospice and GI, it has been explained to the patient that he is on maximal therapy with no appreciable improvement - Extensive discussion today with patient, patient does not want to transfer to Hospice and wants to be closer to home - plan to discuss with his - Continue palliative paracentesis; colostomy bag in place which is draining fluid - DC albumin and octreotide (2) Leukocytosis Comment: - Remains afebrile - WBC 19 - Continue prednisone (3) Acute renal failure Comment: - Creatinine 2.8 - continue midodrine and bicarb - Supportive care, no indication for dialysis - UOP remains adequate (4) Encephalopathy acute Comment: - Currently appropriate but he has intermittent forgetfulness - Continue lactulose, ammonia trending down (5) GI bleeding Comment: - 2/2 portal hypertensive gastropathy - Continue PPI - H&H stable (6) Hyperbilirubinemia Comment: - Bili remains critically elevated at 21 - Physically jaundiced - No stones on gallbladder US - Supportive care (7) Hyponatremia Comment: - Sodium 136 - Continue low sodium diet (8) DVT prophylaxis Comment: - High risk for bleeding, SCDs only (9) DNR (do not resuscitate) Status and Disposition: Inpatient, Plan for Hospice. Pt deciding where he wants to go [place] vs hosp[place].
--- NOTE | 2018-05-29 10:59 | DCNOTE ---
Subjective Date of Service: 05/29/18 Interval History: patient reports he "feels good" - offers no complaints today. Agrees to transfer to [facility]. Brother at bedside. Objective Active Medications: Lactulose (Lactulose*) 15 ml PO TID [facility], [facility]1983 Last Admin: 05/28/18 22:29 Dose: 15 ml Midodrine (Midodrine (Nf)) 15 mg PO TID [facility], [facility]; Protocol Last Admin: 05/28/18 22:29 Dose: 15 mg Ondansetron HCl (Zofran Inj*) 4 mg IV Q6H PRN PRN Reason: NAUSEA Pantoprazole Sodium (Protonix Tab (Nf)) 40 mg PO DAILY [facility], [facility] Last Admin: 05/28/18 10:18 Dose: 40 mg Prednisolone Sodium Phosphate (Prednisolone 3 Mg/Ml 5 Ml Oral.Solution*) 40 mg PO DAILY [facility], [facility]1983; Protocol Stop: 06/01/18 10:59 Last Admin: 05/28/18 10:17 Dose: 40 mg Sodium Bicarbonate (Sodium Bicarbonate (Antacid)*) 650 mg PO AC [facility], [facility] Last Admin: 05/28/18 16:58 Dose: 650 mg Spironolactone (Aldactone Tab*) 150 mg PO DAILY [facility] Last Admin: 05/28/18 10:18 Dose: 150 mg Vital Signs - 8 hr 05/29/18 05/29/18 04:01 07:31 Temperature 98.0 F 97.9 F Pulse Rate 60 83 Respiratory 16 18 Rate Blood Pressure 130/75 92/63 (mmHg) O2 Sat by Pulse 98 99 Oximetry Oxygen Devices in Use Now: None Appearance: 53 yo chronically ill jaundiced male A+O in NAD Eyes: PERRLA, - - + sceral icterus Respiratory: Symmetrical Chest Expansion and Respiratory Effort, Clear to Auscultation Cardiovascular: NL Sounds; No Murmurs; No JVD, RRR, No Edema Abdominal: - - distended soft nontender - ostomy bag placed in RUQ drainingg staw colored fluid Lymphatic: No Cervical Adenopathy Extremities: No Edema, No Clubbing, Cyanosis Skin: - - generalized Jaundice Neurological: NL Sensation, NL Gait, NL Muscle Strength and Tone, - - A+O x3 Result Diagrams: 05/28/18 09:10 05/28/18 09:10 Microbiology and Other Data: . Diagnostic Imaging: Patient Name: JEAN YODER Medical Record#: [id number] Ordering Physician: Amada Lozano NP Acct.#: [id number] : 1965 Age: 53 Sex: M Location: [address] [place] [address] - MEDICAL Exam Date: 05/24/18 1013 ADM Status: ADM IN Order Information: US GALL BLADDER Accession Number: [id number] CPT: 68338 INDICATION: Evaluate for cholecystitis. COMPARISON: Comparison is made with a prior study from May 19, 2018. TECHNIQUE: Multiple real-time images of the right upper quadrant were obtained. FINDINGS: There is sludge present within the gallbladder. No gallstones are seen. The gallbladder was thickened possibly due to the surrounding ascites and unchanged from the prior study. No positive sonographic Benjamin sign was present. No intra or extrahepatic ductal distention is present. The common bile duct was not well visualized. The liver is enlarged with a mildly nodular contour suggesting the possibility of cirrhosis. No focal abnormality is seen. The pancreas is obscured by overlying bowel gas. The right kidney is normal in size without evidence for hydronephrosis. There is a moderate amount of ascites. IMPRESSION: 1. ASCITES. 2. SLUDGE IN GALLBLADDER ANDWALL THICKENING UNCHANGED. THE WALL THICKENING IS LIKELY DUE TO ASCITES. 3. HEPATOMEGALY AND MILDLY NODULAR CONTOUR RAISING THE POSSIBILITY OF CIRRHOSIS. Assess/Plan/Problems-Billing Assessment: This is a 53 year old male with history of ETOH cirrhosis that presented to the ER with abdominal pain and distention 2/2 ascites, currently in decompensated liver failure, hepatorenal syndrome. With MELD increased to 40. - Patient Problems (1) Alcoholic cirrhosis of liver with ascites Comment: End-stage liver disease - Maxed on MOA therapy, creat and bili remain critical, MELD=40 with >70% chance of mortality in 90 days - Per notes from Hospice and GI, it has been explained to the patient that he is on maximal therapy with no appreciable improvement - Continue palliative paracentesis PRN; colostomy bag in place which is draining fluid (2) Leukocytosis Comment: - Remains afebrile - WBC 19 - Continue prednisone for course - DC 9th (3) Acute renal failure Comment: - Creatinine 2.8 - continue midodrine and bicarb - Supportive care, no indication for dialysis - UOP remains adequate (4) Encephalopathy acute Comment: - Currently appropriate but he has intermittent forgetfulness - Continue lactulose, ammonia trending down (5) GI bleeding Comment: - 2/2 portal hypertensive gastropathy - Continue PPI - H&H stable (6) Hyperbilirubinemia Comment: - Bili remains critically elevated at 21 - Physically jaundiced - No stones on gallbladder US - Supportive care (7) Hyponatremia Comment: - Sodium 136 - Continue low sodium diet (8) DVT prophylaxis Comment: - High risk for bleeding, SCDs only (9) DNR (do not resuscitate) Status and Disposition: Inpatient, Plan for Hospice. Pt to be DC to [facility] for brother to drive him.
[2018-05-29] MEDS: PrednisoLONE 3 MG/ML ORAL.SOLU 15 MG/5 ML ORAL.SOLN PO SCH (11:10)
[2018-05-29] MEDS: Lactulose* 15 ML UDC PO SCH (11:10)
[2018-05-29] MEDS: Sodium Bicarbonate (ANTACID)* 650 MG TAB PO SCH ×2 (11:10→11:24)
[2018-05-29] MEDS: Spironolactone TAB* 25 MG PO SCH (11:10)
[2018-05-29] MEDS: CMCS:Midodrine (NF) 5 MG TAB PO SCH (11:11)
[2018-05-29] MEDS: CMC: Pantoprazole TAB (NF) 40 MG TAB PO SCH (11:11)
[2018-05-29 11:22] VITALS: BP 123/76
--- NOTE | 2018-05-29 13:38 | DS ---
CC: Dr. Andrew; Dr. Sandy Rey * DATE OF ADMISSION: 05/19/2018. DATE OF DISCHARGE: 05/29/2018. PROVIDER: Ramon Olsen NP. ATTENDING PHYSICIAN: Dr. Garcia * (reported dictated by Ramon Olsen NP). PRIMARY CARE PHYSICIAN: Dr. Andrew. CONSULTING BANQUET WAITER/WAITRESS: Dr. Urban, Dr. Mcgee. CONSULTING SURGEON: Dr. Toney. PALLIATIVE CARE: Dr. Sandy Rey. CONSULTING MANAGER AGRICULTURAL: Dr. Turner. DISCHARGE DIAGNOSES: 1. End-stage liver failure with cirrhosis, underlying coagulopathy and thrombocytopenia. 2. Alcoholic cirrhosis of the liver with ascites. SECONDARY DIAGNOSES: 1. Congenitally has one kidney. 2. Leukocytosis. 3. Acute renal failure. 4. Encephalopathy. 5. GI bleed. 6. Hyponatremia. HISTORY OF PRESENT ILLNESS AND HOSPITAL COURSE: Please see history and physical by Alberto Camarillo NP for full admission details. In summary, this is a 53-year-old male who presented to the emergency department on 05/19/2018 with complaints of abdominal swelling. He was diagnosed this year with cirrhosis of the liver after he had a GI bleed and was hospitalized in [place] and transferred to [facility]. He has a long-term history of alcoholism. On 05/17, he had a large volume paracentesis; however, he returned to the emergency department two days prior and was admitted on May 19 because he had worsening abdominal swelling of the abdomen. His initial paracentesis pulled 6.5 liters prior to hospitalization. On the day of admission he was seen surgeon Dr. Tony Toney who performed a paracentesis and 3.5 liters of fluid was drained. Throughout the hospitalization, he had a second paracentesis on 05/26/2018, pulling off 3.5 liters of fluid. Paracenteses moving forward will be palliative as needed. He was leaking ascites fluid from the paracentesis insertion site in which an ostomy bag has been placed over the site and collecting the drainage. Initially, the patient was started on Ceftriaxone, Albumin, Octreotide, and per Gastroenterology was maxed out on therapy. He has a MELD score of 40 with a 70 percent chance of mortality within the next 90 days. On admission, he had a creatinine of 3.22 and was seen by police or patrol park officer Dr. Turner. The patient had no indication for dialysis and his creatinine has slowly improved and trended down, last checked on 05/28/2018, noted to be 2.82. His hyponatremia has resolved. He has hepatic encephalopathy and has some mild confusion, but is noted to be mostly alert and oriented times three with some intermittent confusion noted. His ammonia level has been trended, was high as 142. His Lactulose was increased and should continue on Lactulose with the goal of two to three bowel movements a day. Last ammonia level was 2017 and was 86. He had a negative acute hepatitis panel and negative for influenza A and B. His INR is elevated, known to be 2.59. This is secondary to the liver failure. He was seen in consultation by palliative physician Dr. Sandy Rey who states the patient is a hospice candidate due to his severe hepatic failure and with his three month mortality being around 90 percent. The patient has agreed to a DNR/DNI and comfort care only and sign on with hospice. The patient should continue to have palliative paracenteses as needed on a prn basis if he wishes. He would like to continue on the Lactulose, Midodrine, Sodium Bicarb and Spironolactone at this time. DISCHARGE MEDICATIONS: 1. Spironolactone 150 mg p.o. daily. 2. Sodium Bicarb 650 mg p.o. a.c. 3. Prednisone 40 mg p.o. daily times 3 more doses. 4. Protonix 40 mg p.o. daily. 5. Midodrine 15 mg p.o. t.i.d. 6. Lactulose 15 ml p.o. t.i.d. The patient should be having two to three soft bowel movements a day. DISCHARGE PLAN: 1. The patient will be transferred to [facility] for hospice and palliative care. 2. Comfort care measures. 3. DNR/DNI. 4. Patient is okay to transport in brother's car. TIME SPENT: Approximately 60 minutes were spent on this discharge. RAMON OLSEN, EMERGENCY VETERINARY ASSISTANT [id number]/[facility] #: [id number] MARK
== END 2018-05-29 14:00 | DRG 280 ==
LOC: ED 09:20 → SSU 11:43 → ICU 13:10 → MED 05-23 21:15
PROVIDERS: ADMIT Internal Medicine; ATTEND Internal Medicine
PROC: 0W9G3ZZ Drainage of Peritoneal Cavity, Percutaneous Approach (ICD-10-PCS; principal; 2018-05-19)
PROC: 0W9G3ZZ Drainage of Peritoneal Cavity, Percutaneous Approach (ICD-10-PCS; 2018-05-26)
DX: K70.31 Alcoholic cirrhosis of liver with ascites (principal); K76.7 Hepatorenal syndrome; N17.9 Acute kidney failure, unspecified; E87.1 Hypo-osmolality and hyponatremia; Q60.0 Renal agenesis, unilateral; I85.00 Esophageal varices without bleeding; D62 Acute posthemorrhagic anemia; K92.2 Gastrointestinal hemorrhage, unspecified; K76.6 Portal hypertension; K70.40 Alcoholic hepatic failure without coma; Z87.891 Personal history of nicotine dependence; E80.6 Other disorders of bilirubin metabolism; R62.7 Adult failure to thrive; Z83.3 Family history of diabetes mellitus; Z80.51 Family history of malignant neoplasm of kidney; R19.7 Diarrhea, unspecified; Z66 Do not resuscitate; D69.6 Thrombocytopenia, unspecified; F10.10 Alcohol abuse, uncomplicated; Y90.9 Presence of alcohol in blood, level not specified; K31.89 Other diseases of stomach and duodenum
CPT/HCPCS: 36415; 49082; 71045; 76705; 80053; 80074; 81003; 82140; 82150; 82272; 82550; 82570; 83605; 83690; 83735; 83880; 83930; 83935; 84133; 84134; 84157; 84300; 84484; 85014; 85018; 85025; 85060; 85610; 85730; 86140; 87040; 87086; 87205; 87641; 89051; 93005; 99285; A9270-GY; J0696; J2354; J2405; J3430; J7510; P9047